=== PATIENT | female | born 1945 | race African-American/Black ===

== ENCOUNTER 2021-12-24 17:25 | Emergency (ER) | payer MEDICARE, SELFPAY ==
--- NOTE | ~2021-12-24 | XR_ITS ---
XR chest 2V DATE: 12/24/2021 18:04 INDICATION: Chest heaviness for a few weeks TECHNIQUE: PA and lateral views COMPARISON: None FINDINGS: There is mild cartilage. There is aortic arch calcification and thoracic aortic tortuosity. No hilar or mediastinal enlargement. No pulmonary infiltrate or consolidation, pleural effusion or pulmonary vascular congestion or pneumo thorax. Diffuse osteopenia. Degenerative spurring of the thoracic spine. IMPRESSION: No active cardiac pulmonary disease Aortic atherosclerosis Reviewed, dictated and finalized at location A.
[2021-12-24 17:27] VITALS: BP 160/105; PULSE 96; RESP 19; TEMP 36.1; O2SAT 99
--- NOTE | 2021-12-24 17:28 | ECG_ITS ---
Measurements Intervals [place] Rate: 96 P: DE: 0 QRS: -3 QRSD: 82 T: 9 QT: 350 QTc: 444 Interpretive Statements ATRIAL FIBRILLATION LOW QRS VOLTAGE IN PRECORDIAL LEADS [QRS DEFLECTION < 1.0 mV IN CHEST LEADS] POSSIBLE RIGHT VENTRICULAR CONDUCTION DELAY [RSR (QR) IN V1/V2] ANTERIOR MYOCARDIAL INFARCTION , OF INDETERMINATE AGE [40+ ms Q WAVE AND/OR ST/T ABNORMALITY IN V3/V4] ABNORMAL ECG NO PREVIOUS ECG AVAILABLE FOR COMPARISON Electronically Signed On 12-25-2021 9:22:23 CDT by Stefano Hernandez M.D.
[2021-12-24 17:46] LABS: Basophils Percent Auto 0.4 % (0.2-1.2); Eosinophils Absolute Auto 0.1 K/mm3 (0-0.3); Eosinophils Percent Auto 1.4 % (0-4.4); Hematocrit 33.8 % (37.0-47.0); Hemoglobin 10.6 g/dL (12.0-15.0); Immature Granulocyte Absolute 0.02 K/mm3 (0.00-0.031); Immature Granulocyte Percent A 0.3 % (0-0.5); Lymphocytes Absolute Auto 2.56 K/mm3 (0.9-3.2); Lymphocytes Percent Auto 33.5 % (18.3-44.2); Mean Corpuscular HGB Conc 31.4 g/dl (32-36); Mean Corpuscular Hemoglobin 30.4 pg (26-34); Mean Corpuscular Volume 96.8 fl (80-100); Monocytes Absolute Auto 0.4 K/mm3 (0.1-0.6); Monocytes Percent Auto 5.6 % (2.6-8.5); Neutrophils Absolute Auto 4.5 K/mm3 (1.3-6.7); Neutrophils Percent Auto 58.8 % (45.5-73.1); Platelet Count Result 231 k/mm3 (150-375); Red Blood Count 3.49 M/mm3 (4.2-5.4); Red Cell Distribution Width 13.2 % (11.5-14.5); White Blood Count 7.6 K/mm3 (4.5-10.0)
[2021-12-24 17:58] LABS: Alanine Aminotransferase 16 U/L (4-35); Alkaline Phosphatase 68 U/L (38-126); Anion Gap 5 mmol/L (8-16); Aspartate Amino Transferase 35 U/L (14-36); Bilirubin,Total 0.4 mg/dL (0.2-1.3); Blood Urea Nitrogen 16 mg/dL (7-17); Calcium 8.4 mg/dL (8.4-10.2); Carbon Dioxide 27 mmol/L (22-30); Chloride 108 mmol/L (98-107); Estimated CRCL calculation 56 ml/min; Estimated Glomerular Filt Rate > 60; Glucose 103 mg/dL (65-110); Lipase 45 U/L (23-300); Potassium 3.3 mmol/L (3.4-5.0); Sodium 140 mmol/L (137-145)
[2021-12-24 18:00] LABS: INR 2.5; Prothrombin Time 26.4 Seconds (11.1-14.7)
[2021-12-24 18:01] LABS: Partial Thromboplastin Time 37.7 SECONDS (22.3-36.8)
[2021-12-24 18:09] LABS: Troponin I < 0.012 ng/mL (0.000-0.034)
[2021-12-24] MEDS: ASPIRIN 81 MG CHEWABLE TABLET 324 MG PO (18:22)
--- NOTE | 2021-12-24 19:37 | ED.CHESTPAIN ---
HPI - Chest Pain General Chief Complaint: Chest Pain Stated Complaint: chest heaviness Time Seen by Provider: 12/24/21 18:49 Source: patient History of Present Illness HPI narrative: Patient presents with chest pressure. Reports she has had symptoms like this before in the past feels like she overworked herself has not been her symptoms improved after a few days. Today's episode did not improve so she came to the ER for evaluation. She does report she has been working harder than usual was trying to let her symptoms recover however today shortly after breakfast and doing dishes she described a chest tightness as well as left upper extremity pain it was not resolving so she came to the ER for further evaluation. She denies any shortness of breath nausea vomiting or diaphoresis. Related Data Home Medications Medication Instructions Recorded Confirmed lorazepam 1 mg PO BID PRN 12/24/21 warfarin 5 mg PO DAILY 12/24/21 Allergies Allergy/AdvReac Type Severity Reaction Status Date / Time No Known Allergies Allergy Unverified 12/24/21 18:27 Review of Systems Review of Systems: CONSTITUTIONAL: Denies fever, chills, or sweats. EYES: Denies visual changes, redness, or discharge. ENT: Denies rhinorrhea, congestion, sore throat, or otalgia. CARDIOVASCULAR: Denies palpitations, or edema. RESPIRATORY: Denies cough or dyspnea. GASTROINTESTINAL: Denies abdominal pain, nausea, vomiting, or diarrhea. GENITOURINARY: Denies dysuria or hematuria. SKIN: Denies rash or itching. MUSCULOSKELETAL: Denies back pain, joint pain, or myalgia. NEUROLOGIC: Denies headache, numbness, dizziness, or weakness. PSYCHIATRIC: Denies anxiety or depression. All systems reviewed & are unremarkable except as noted in HPI and below PMFSH Past Medical History Medical History (Updated 12/24/21 @ 19:45 by Silvano Ugalde MD) A-fib Social History Social History (Updated 12/24/21 @ 19:43 by Silvano Ugalde MD) Smoking status: Never smoker Alcohol intake: never Substance use: never Exam Narrative: GENERAL: Well-appearing, well-nourished, and in no acute distress. HEAD: Normocephalic, atraumatic. EYES: PERRLA and EOMI. ENT: Nares clear, no rhinorrhea or epistaxis. Mucous membranes moist. NECK: Supple. No masses. No JVD CHEST: Clear to auscultation. No respiratory distress. No wheezes rales or rhonchi HEART: Regular rate and rhythm. No murmur heard. Normal peripheral pulses. ABDOMEN: Soft, nontender, nondistended, normal active bowel sounds. EXTREMITIES: Normal range of motion. No edema. SKIN: Warm, dry, no rash. NEURO: No focal deficits. Alert and oriented x3. PSYCH: Normal mood and affect. Course Reevaluation(s) Reevaluation #1: Patient was comfortably results and plan reviewed with patient. Patient comfortable outpatient plan. Date: 12/24/21 Time: 19:43 Vital Signs Vital signs: Vital Signs Temperature 36.1 C L 12/24/21 17:27 Pulse Rate 96 12/24/21 17: Respiratory Rate 19 12/24/21 17:27 Blood Pressure 160/105 H 12/24/21 17:27 Pulse Oximetry 99 12/24/21 17:27 Temperature 36.1 C L 12/24/21 17:27 Pulse Rate 74 12/24/21 20:53 Respiratory Rate 17 12/24/21 20:53 Blood Pressure 151/98 H 12/24/21 20:53 Pulse Oximetry 100 12/24/21 20:53 MDM - Chest Pain MDM Narrative Medical decision making narrative: H&P as above, vss, pt looks clinically well, exam reassuring, labs reassuring, img reassuring, additional labs/img considered, symptomatic relief available as needed, on reevaluation pt continues to looks clinically well. Symptoms remain of unclear etiology low concern for ACS, PE, dissection, pneumothorax plan to tx/monitor as op w/ pcm f/u findings/plan discussed with pt, pt agree/comfortable with plan, return precautions given. Patient also has follow-up with her caster helper Monday of next week Lab Data Result diagrams: 12/24/21 17:39 12/24/21 17:39 Labs: Lab Res
[2021-12-24] MEDS: SODIUM CHLORIDE 0.9% IV 500 ML 999 ML IV CONT (20:21)
[2021-12-24 20:53] VITALS: BP 151/98; PULSE 74; RESP 17; O2SAT 100
== END 2021-12-24 21:15 | disposition home or self-care (01) ==
LOC: ANHED 20:07
PROVIDERS: Emergency Medicine; Emergency Provider Emergency Medicine; PCP Internal Medicine
DX: R07.89 Other chest pain (principal); I48.91 Unspecified atrial fibrillation; I70.0 Atherosclerosis of aorta; R94.31 Abnormal electrocardiogram [ECG] [EKG]; Z79.01 Long term (current) use of anticoagulants
CPT/HCPCS: 36415; 71046; 80053; 83690; 84484; 85025; 85610; 85730; 93005; 96360; 99284; A9270; J7040

== ENCOUNTER → 2022-02-02 12:33 | Outpatient (CLI) | payer MEDICARE, SELFPAY ==
--- NOTE | ~2022-02-02 | CT_ITS ---
EXAMINATION: CT abdomen pelvis wo con DATE: 02/02/2022 12:55 INDICATION: Diverticulitis, left lower quadrant pain TECHNIQUE: Computed tomography (CT) of the abdomen and pelvis was performed without intravenous contr ast. The dose-length product (DLP) was 593.48 mGy-cm. Automated exposure control and iterative recons truction technique were employed. COMPARISON: None FINDINGS: Minimal dependent atelectasis is present in the lung bases. The heart size is normal. Punct ate calcifications in otherwise normal appearing liver and spleen likely represent healed granulomato us disease. The pancreas, gallbladder, and adrenal glands are normal. No pathologically enlarged abdo karlie or pelvic lymph nodes are identified. There is no free intraperitoneal gas or evidence of bowel obstruction. Calcified uterine fibroids are noted. IMPRESSION: 1. No CT correlate for the patient's symptoms. Reviewed, dictated and finalized at location F.
== END ==
PROVIDERS: PCP Internal Medicine; Visit Provider Internal Medicine
DX: K57.92 Diverticulitis of intestine, part unspecified, without perforation or abscess without bleeding (principal)
CPT/HCPCS: 74176

== ENCOUNTER 2022-02-18 01:29 | Day surgery (SDC) | payer MEDICARE, SELFPAY ==
[2022-02-10 13:38] VITALS: BMI 33.5
[2022-02-18 11:56] VITALS: BP 144/101; PULSE 103; RESP 16; TEMP 36.3; O2SAT 100
[2022-02-18 11:57] VITALS: BMI 31.7
[2022-02-18] MEDS: LACTATED RINGERS 1,000 ML 150 ML IV CONT (12:11)
--- NOTE | 2022-02-18 12:12 | P.PNAN_ITS ---
Anes - Initial Pre Proc Eval Procedure: Operation Date: 02/18/22 13:15 Proposed Procedures p Colonoscopy - Giorgio Dyson MD Date/Time: 02/18/22 12:12 Surgeon: Giorgio Dyson MD Pre Op Diagnosis: ARIELLA Patient Data Age: 76 Gender: F Height: 1.52 m Weight: 73.8 kg Last Vital Signs Temp 36.3 C L 02/18/22 11:56 Pulse 103 H 02/18/22 11:56 Resp 16 02/18/22 11:56 BP 144/101 H 02/18/22 11:56 Pulse Ox 100 02/18/22 11:56 Allergies Allergy/AdvReac Type Severity Reaction Status Date / Time No Known Allergies Allergy Verified 02/18/22 11:45 Home Medications Medication Instructions Recorded Confirmed Type lorazepam 1 mg PO BID PRN 12/24/21 02/10/22 History warfarin 5 mg PO DAILY 12/24/21 02/10/22 History Ca carb-D3-mag [id number]-[id number]-Zn 1 tablet PO DAILY 02/10/22 02/10/22 History [Caltrate + D3 Plus Minerals] ferrous sulfate [FeroSul] 325 mg PO DAILY 02/10/22 02/10/22 History nitroglycerin 0.4 mg SUBLINGUAL DIRECTED PRN 02/10/22 02/10/22 History Patient hx anesthesia problems: none Family hx anesthesia problems: none Results Review: All pre-operative results and documents have been reviewed as pa rt of the pre-operative evaluation. PMFSH Past Medical History Medical History (Updated 02/18/22 @ 12:13 by Yoseph Roach MD) A-fib Obesity Surgical History Surgical History (Updated 02/18/22 @ 12:13 by Yoseph Roach MD) H/O colonoscopy Social History Social History Smoking status: Never smoker Alcohol intake: never Substance use: never Substance use type: does not use Living arrangements: with family Spiritual care concerns: No Anes - Eval Final PreProcedure Day of Procedure 02/18/22 12:12 Patient weight: obese Heart: regular rate and rhythm Lungs: clear to auscultation Airway: Mallampati scale class II Neurological: alert and oriented Last oral intake: >/= 8 hours ASA classification: III Emergent: no Anesthetic plan: proceed Anesthesia type and monitoring: general GIVS and standard monitoring Results Review: All pre-operative results and documents have been reviewed as part of the pre-operative evaluation. Informed Consent: The patient's anesthetic plan and its attendant risks and benefits were discussed with the patient/family/POA. Questions were solicited and answers provided to the satisfaction of the patient/family/POA.
[2022-02-18 12:25] LABS: INR 1.2; Prothrombin Time 14.2 Seconds (11.1-14.7)
--- NOTE | 2022-02-18 13:04 | WPDGICN ---
Assessment and Plan Assessment and plan (1) Iron deficiency anemia: Code(s): D50.9 - Iron deficiency anemia, unspecified Status: Acute Assessment and Plan: Colonoscopy with possible biopsy or polypectomy or cautery or injection of substances. GI Consult Note Consult date/time: 02/18/22 13:04 HPI: Lesia Aguilera is a 76 year old female Referred for investigation of iron deficiency anemia. She just recently began taking iron. She has not seen blood in her stools. There is a family history of colon cancer, her son had colon cancer. It has been quite a while since she had a colonoscopy. Review of Systems Review of Systems: All systems reviewed & are unremarkable except as noted in HPI and below PMFSH Past Medical History Medical History A-fib Obesity Surgical History Surgical History H/O colonoscopy Social History Social History Smoking status: Never smoker Alcohol intake: never Substance use: never Substance use type: does not use Living arrangements: with family Spiritual care concerns: No Meds Home Medications and Allergies Home Medications Medication Instructions Recorded Confirmed Type lorazepam 1 mg PO BID PRN 12/24/21 02/10/22 History warfarin 5 mg PO DAILY 12/24/21 02/10/22 History Ca carb-D3-mag so-[id number]-[id number]-Zn 1 tablet PO DAILY 02/10/22 02/10/22 History [Caltrate + D3 Plus Minerals] ferrous sulfate [FeroSul] 325 mg PO DAILY 02/10/22 02/10/22 History nitroglycerin 0.4 mg SUBLINGUAL DIRECTED PRN 02/10/22 02/10/22 History Allergies Allergy/AdvReac Type Severity Reaction Status Date / Time No Known Allergies Allergy Verified 02/18/22 11:45 Vital Signs Vital Signs - 24 hr 02/18/22 11:56 Temperature 36.3 C L Pulse Rate 103 H Respiratory Rate 16 Blood Pressure 144/101 H Pulse Oximetry 100 Exam Const: General: alert Orientation/consciousness: patient oriented x3 Resp: Auscultation: clear to auscultation bilaterally Cardio: Rhythm: regular rhythm GI: GI Palp: Yes Soft to palpation and No Tenderness to palpation present (GI) Neuro: General: patient oriented x3
[2022-02-18] MEDS: SIMETHICONE ORAL SUSPENSION 20 MG/0.3 ML 30 ML BOTTLE 0.6 ML IRRIGATION (13:23)
[2022-02-18 13:34] VITALS: BP 105/68; PULSE 97; RESP 18; O2SAT 98
[2022-02-18 13:44] VITALS: BP 104/68; PULSE 94; RESP 18; O2SAT 99
[2022-02-18 13:54] VITALS: BP 133/97; PULSE 86; RESP 16; O2SAT 99
== END 2022-02-18 14:08 | disposition home or self-care (01) ==
PROVIDERS: PCP Internal Medicine; Visit Provider Internal Medicine Gastroenterology
PROC: 0DJD8ZZ Inspection of Lower Intestinal Tract, Via Natural or Artificial Opening Endoscopic (ICD-10-PCS; CPT 45378; principal; 2022-02-18 13:15)
DX: Z12.11 Encounter for screening for malignant neoplasm of colon (principal); K64.8 Other hemorrhoids; K57.30 Diverticulosis of large intestine without perforation or abscess without bleeding; D50.9 Iron deficiency anemia, unspecified; E66.9 Obesity, unspecified; Z68.31 Body mass index [BMI] 31.0-31.9, adult
CPT/HCPCS: G0121; 36415; 85610; J2704; J7120

== ENCOUNTER 2022-07-08 15:46 | Observation (INO) | payer MEDICARE, SELFPAY ==
[2022-07-08] VITALS (36 sets, daily range): BP systolic 116–177; BP diastolic 75–109; PULSE 79–137; RESP 16–30; TEMP 36.4–37.8; O2SAT 98–100
--- NOTE | ~2022-07-08 | US_ITS ---
EXAMINATION: US abdomen limited DATE: 07/08/2022 18:30 INDICATION: Epigastric abdominal pain. Fever. Vomiting. TECHNIQUE: Multiple grayscale and Doppler ultrasound images of the abdomen were obtained. COMPARISON: CT abdomen and pelvis 07/08/2022 FINDINGS: The visualized portions of the head and body and tail of the pancreas are normal. The liver is normal without focal lesion. There is normal flow in main portal vein. The gallbladder is normal in size. No gallstones or gallbladder wall thickening. There was no sonographic Cornejo sign. The comm on duct is normal and measures 4 mm. IMPRESSION: 1. Normal right upper quadrant ultrasound. Reviewed, dictated and finalized at location A.
--- NOTE | ~2022-07-08 | CT_ITS ---
EXAMINATION: CT abdomen pelvis w con DATE: 07/08/2022 17:21 INDICATION: Epigastric abdominal pain. Vomiting. Fever. TECHNIQUE: Computed tomography (CT) of the abdomen and pelvis was performed with 100 mL Omnipaque 350 intravenous contrast. Automated exposure control and iterative reconstruction technique were employe d. The dose-length product was 387.28 mGy-cm. COMPARISON: CT abdomen and pelvis 02/02/2022 FINDINGS: The visualized portions of the lung bases demonstrate mild atelectasis. A calcified right l frannie nodule and calcified right hilar and mediastinal lymph nodes are consistent with old granulomatou s disease. No pleural effusion. Cardiomegaly is noted. There are coronary artery calcifications. No p ericardial effusion. Calcifications in the liver and spleen are consistent with old granulomatous dis ease. The gallbladder, pancreas, adrenal glands, and left kidney are normal. There is a 10 mm cyst in right kidney. There is a calcified fibroid in the uterus. There is diverticulosis of the colon witho ut evidence of diverticulitis. There are no dilated loops of bowel. The appendix is not visualized. T here are no pathologically enlarged lymph nodes. There is trace pelvic ascites. There is a right ingu inal hernia containing fat. There is mild thoracolumbar spondylosis. IMPRESSION: 1. Right inguinal hernia containing fat. Reviewed, dictated and finalized at location A.
--- NOTE | ~2022-07-08 | XR_ITS ---
EXAMINATION: XR chest 2V DATE: 07/08/2022 18:54 INDICATION: Fever. TECHNIQUE: Frontal and lateral views of the chest were obtained. COMPARISON: Chest 2 views 12/24/2021, CT abdomen and pelvis 07/08/2022 FINDINGS: There is mild atelectasis in the lower lung zones. No pleural effusion or pneumothorax. Car diomegaly is noted. IMPRESSION: 1. Mild atelectasis in the lower lung zones. 2. Cardiomegaly. Reviewed, dictated and finalized at location A.
[2022-07-08 16:47] LABS: Basophils Percent Auto 0.2 % (0.2-1.2); Eosinophils Percent Auto 0.1 % (0-4.4); Hematocrit 34.6 % (37.0-47.0); Hemoglobin 11.2 g/dL (12.0-15.0); Immature Granulocyte Absolute 0.06 K/mm3 (0.00-0.031); Immature Granulocyte Percent A 0.5 % (0-0.5); Lymphocytes Absolute Auto 0.76 K/mm3 (0.9-3.2); Lymphocytes Percent Auto 6.2 % (18.3-44.2); Mean Corpuscular HGB Conc 32.4 g/dl (32-36); Mean Corpuscular Hemoglobin 30.9 pg (26-34); Mean Corpuscular Volume 95.3 fl (80-100); Mean Platelet Volume 9.9 fl (7.4-10.4); Monocytes Absolute Auto 0.6 K/mm3 (0.1-0.6); Neutrophils Absolute Auto 10.9 K/mm3 (1.3-6.7); Platelet Count Result 222 k/mm3 (150-375); Red Blood Count 3.63 M/mm3 (4.2-5.4); White Blood Count 12.3 K/mm3 (4.5-10.0)
[2022-07-08] MEDS: SODIUM CHLORIDE 0.9% IV 500 ML 999 ML IV CONT ×2 (16:53→17:39)
--- NOTE | 2022-07-08 16:54 | ECG_ITS ---
Measurements Intervals [place] Rate: 125 P: [place]: 0 QRS: -17 QRSD: 77 T: -8 QT: 309 QTc: 447 Interpretive Statements ATRIAL FIBRILLATION WITH RAPID VENTRICULAR RESPONSE EARLY PRECORDIAL R/S TRANSITION INFERIOR INFARCT, AGE INDETERMINATE ABNORMAL ECG COMPARED TO ECG 12/24/2021 17:32:34 HEART RATE HAS INCREASED Electronically Signed On 07-08-2022 21:37:59 CDT by Jose Starkey D.O.
--- NOTE | 2022-07-08 16:57 | ED.GENADULT ---
HPI - General Adult General Chief complaint: Unspecified <DOROTEO Roman Last Filed: 07/08/22 18:49> Stated complaint: flu like symptoms <DOROTEO Roman Last Filed: 07/08/22 18:49> Time Seen by Provider: 07/08/22 16:26 <DOROTEO Roman Last Filed: 07/08/22 18:49> Source: patient <DOROTEO Roman Last Filed: 07/08/22 18:49> Mode of arrival: ambulatory <DOROTEO Roman Last Filed: 07/08/22 18:49> Limitations: no limitations <DOROTEO Roman Last Filed: 07/08/22 18:49> History of Present Illness HPI narrative: This is a 76-year-old female that presents to the emergency department for epigastric pain, nausea and vomiting. Ongoing since this morning. Associated with fever. Denies diarrhea or dysuria. <DOROTEO Roman Last Filed: 07/08/22 18:49> Related Data Home medications: Home Medications Medication Instructions Recorded Confirmed lorazepam 1 mg tablet 1 mg PO BID PRN Anxiety 12/24/21 02/10/22 warfarin 5 mg tablet 5 mg PO DAILY 12/24/21 02/10/22 calcium carb 300 mg-D3 800 1 tablet PO DAILY 02/10/22 02/10/22 unit-mag ox 25 mg-coping machine assembler 0.5 mg-katrin-Zn tablet (Caltrate + D3 Plus Minerals) ferrous sulfate 325 mg (65 mg 325 mg PO DAILY 02/10/22 02/10/22 iron) tablet (FeroSul) nitroglycerin 0.4 mg sublingual 0.4 mg sublingual DIRECTED PRN 02/10/22 02/10/22 tablet Chest Pain <DOROTEO Roman Last Filed: 07/08/22 18:49> Allergies/adverse reactions: Allergies Allergy/AdvReac Type Severity Reaction Status Date / Time No Known Allergies Allergy Verified 07/08/22 16:05 <DOROTEO Roman Last Filed: 07/08/22 18:49> Review of Systems Review of Systems: CONSTITUTIONAL: Denies fever CARDIOVASCULAR: Denies chest pain GASTROINTESTINAL: Reports abdominal pain, nausea, vomiting. Denies diarrhea. GENITOURINARY: Denies dysuria <Davina Ribeiro PA-C - Last Filed: 07/08/22 18:49> All systems reviewed & are unremarkable except as noted in HPI and below <Davina Ribeiro PA-C - Last Filed: 07/08/22 18:49> PMFSH Past Medical History Medical History: Medical History A-fib Obesity <Davina Ribeiro PA-C - Last Filed: 07/08/22 18:49> Surgical History Surgical History: Surgical History H/O colonoscopy <Davina Ribeiro PA-C - Last Filed: 07/08/22 18:49> Social History Social History: Social History Smoking status: Never smoker Alcohol intake: never Substance use: never Substance use type: does not use Spiritual care concerns: No <Davina Ribeiro PA-C - Last Filed: 07/08/22 18:49> Exam Narrative: GENERAL: Elderly, well-nourished, and in no acute distress. HEAD: Normocephalic, atraumatic. EYES: EOMI. CHEST: Clear to auscultation. No respiratory distress. No wheezes rales or rhonchi HEART: Regular rate and rhythm. No murmur heard. Normal peripheral pulses. ABDOMEN: Soft, nondistended, normal active bowel sounds. Tender to palpation of the epigastrium, without guarding EXTREMITIES: Normal range of motion. No edema. SKIN: Warm, dry, no rash. NEURO: No focal deficits. Alert and oriented x3. PSYCH: Normal mood and affect <Davina Ribeiro PA-C - Last Filed: 07/08/22 18:49> Course FURNACE LOADER/PA Physician Supervision For this patient encounter, I reviewed the FURNACE LOADER or PA documentation, treatment plan, and medical decision making; and I had [id number] time with this patient. <Leatha Brantley MD - Last Filed: 07/08/22 18:44> Consultations Consultation #1: Spoke with hospitalist about patient and work-up who accepts admission for further management of atrial fibrillation with RVR <Davina Ribeiro PA-C - Last Filed: 07/08/22 18:49> Date: 07/08/22 <Davina Ribeiro PA-C - Last Filed: 06/11
[2022-07-08 16:58] LABS: Appearance Urine Slightly Cloudy (Clear); Bilirubin Urine Negative (Negative); Blood Urine 1+ (Negative); Color Urine Yellow (Yellow); Glucose Urine UA Negative (Negative); Ketones Urine 2+ mg/dL (Negative); Leukocyte Esterase Ur 1+ LEU/UL (Negative); Nitrate Urine Negative (Negative); Protein Urine Negative (Negative); Urobilinogen Urine 0.2 mg/dL (<2.0)
[2022-07-08 17:03] LABS: Bacteria Urine Trace /hpf; Mucus Urine Rare /lpf; Squamous Epithelial Cell Urine Few /hpf (Few)
[2022-07-08 17:03] LABS: Alanine Aminotransferase 21 U/L (6-35); Albumin Level 4.4 g/dL (3.5-5.1); Alkaline Phosphatase 83 U/L (38-126); Anion Gap 11 mmol/L (8-16); Aspartate Amino Transferase 37 U/L (14-36); Bilirubin,Total 1.2 mg/dL (0.2-1.3); Blood Urea Nitrogen 15 mg/dL (7-17); Calcium 9.1 mg/dL (8.4-10.2); Carbon Dioxide 25 mmol/L (22-30); Chloride 100 mmol/L (98-107); Estimated Glomerular Filt Rate > 60; Glucose 119 mg/dL (65-110); Lipase 33 U/L (23-300); Potassium 3.3 mmol/L (3.4-5.0); Sodium 136 mmol/L (137-145)
[2022-07-08] MEDS: ONDANSETRON INJ 4 MG/2 ML VIAL IV PUSH ×2 (17:03→19:14)
[2022-07-08 17:04] LABS: Add Urine Microscopic? YES
[2022-07-08] MEDS: FAMOTIDINE 20 MG/2 ML VIAL IV PUSH (17:04)
[2022-07-08 17:20] LABS: Influenza A QL RT-PCR Negative (Negative); Influenza B QL RT-PCR Negative (Negative); SARS-CoV-2 RNA PCR Negative
[2022-07-08] MEDS: dilTIAZem HCl INJ 25 MG/5 ML VIAL 10 MG IV PUSH (18:22)
[2022-07-08] MEDS: dilTIAZem 100 MG/100 ML 100 MG/100 ML BAG IV CONT (18:57)
[2022-07-08] MEDS: POTASSIUM CHLORIDE 20 MEQ TABLET 40 MEQ PO (19:01)
--- NOTE | 2022-07-08 19:02 | ED.GENADULT ---
HPI - General Adult General Chief complaint: Unspecified Stated complaint: flu like symptoms Time Seen by Provider: 07/08/22 16:26 Source: patient Mode of arrival: ambulatory Limitations: no limitations Related Data Home Medications Medication Instructions Recorded Confirmed lorazepam 1 mg tablet 1 mg PO BID PRN Anxiety 12/24/21 02/10/22 warfarin 5 mg tablet 5 mg PO DAILY 12/24/21 02/10/22 calcium carb 300 mg-D3 800 1 tablet PO DAILY 02/10/22 02/10/22 unit-mag ox 25 mg-copy manager 0.5 mg-katrin-Zn tablet (Caltrate + D3 Plus Minerals) ferrous sulfate 325 mg (65 mg 325 mg PO DAILY 02/10/22 02/10/22 iron) tablet (FeroSul) nitroglycerin 0.4 mg sublingual 0.4 mg sublingual DIRECTED PRN 02/10/22 02/10/22 tablet Chest Pain Allergies Allergy/AdvReac Type Severity Reaction Status Date / Time No Known Allergies Allergy Verified 07/08/22 16:05 [facility] Past Medical History Medical History A-fib Obesity Surgical History Surgical History H/O colonoscopy Social History Social History Smoking status: Never smoker Alcohol intake: never Substance use: never Substance use type: does not use Spiritual care concerns: No Course Vital Signs Vital signs: Vital Signs Temperature 98.6 F 07/08/22 15:50 Pulse Rate 124 H 07/08/22 15:50 Respiratory Rate 20 07/08/22 15:50 Blood Pressure 153/95 H 07/08/22 15:50 Pulse Oximetry 100 07/08/22 15:50 Temperature 100.0 F H 07/08/22 16:46 Pulse Rate 109 H 07/08/22 18:57 Respiratory Rate 27 H 07/08/22 18:22 Blood Pressure 126/80 07/08/22 18:57 Pulse Oximetry 100 07/08/22 15:50 Medical Decision Making Vital Signs Vital Signs: Vital Signs Temperature 98.6 F 07/08/22 15:50 Pulse Rate 124 H 07/08/22 15:50 Respiratory Rate 20 07/08/22 15:50 Blood Pressure 153/95 H 07/08/22 15:50 Pulse Oximetry 100 07/08/22 15:50 Temperature 100.0 F H 07/08/22 16:46 Pulse Rate 109 H 07/08/22 18:57 Respiratory Rate 27 H 07/08/22 18:22 Blood Pressure 126/80 07/08/22 18:57 Pulse Oximetry 100 07/08/22 15:50 Lab Data Result diagrams: 07/08/22 16:43 07/08/22 16:43 Labs: Lab Results 07/08/22 07/08/22 07/08/22 Range/Units 16:39 16:43 16:43 WBC 12.3 H (4.5-10.0) K/mm3 RBC 3.63 L (4.2-5.4) M/mm3 Hgb 11.2 L (12.0-15.0) g/dL Hct 34.6 L (37.0-47.0) % MCV 95.3 (80-100) fl MCH 30.9 (26-34) pg MCHC 32.4 (32-36) g/dl RDW 13.0 (11.5-14.5) % Plt Count 222 (150-375) k/mm3 MPV 9.9 (7.4-10.4) fl Immature Gran % (Auto) 0.5 (0-0.5) % Neut % (Auto) 88.0 H (45.5-73.1) % Lymph % (Auto) 6.2 L (18.3-44.2) % [place] % (Auto) 5.0 (2.6-8.5) % Eos % (Auto) 0.1 (0-4.4) % Baso % (Auto) 0.2 (0.2-1.2) % Lymph # (Auto) 0.76 L (0.9-3.2) K/mm3 [place] # (Auto) 0.6 (0.1-0.6) K/mm3 Eos # (Auto) 0.0 (0-0.3) K/mm3 Baso # (Auto) 0.0 (0.0-0.1) K/mm3 Abs Immat Gran (auto) 0.06 H (0.00-0.031) K/mm3 Absolute Neuts (auto) 10.9 H (1.3-6.7) K/mm3 Absolute Nucleated RBC 0.0 (0.0-0.012) K/mm3 Nucleated RBC % 0.0 (0.0-0.2) % Sodium 136 L (137-145) mmol/L Potassium 3.3 L (3.4-5.0) mmol/L Chloride 100 (98-107) mmol/L Carbon Dioxide 25 (22-30) mmol/L Anion Gap 11 (8-16) mmol/L BUN 15 (7-17) mg/dL Creatinine 0.90 (0.7-1.0) mg/dL Estim Creat Clear Calc Not Reportable Estimated GFR > 60 (59 - ) Glucose 119 H (65-110) mg/dL Lactic Acid Calcium 9.1 (8.4-10.2) mg/dL Total Bilirubin 1.2 (0.2-1.3) mg/dL AST 37 H (14-36) U/L ALT 21 (6-35) U/L Alkaline Phosphatase 83 (38-126) U/L Total Protein 8.0 (6.3-8.2) g/dL Albumin 4.4 (3.5-5.1) g/dL Lipase 33 (23-300) U/L Urine C
[2022-07-08 19:14] LABS: Magnesium 1.6 mg/dL (1.6-2.3)
--- NOTE | 2022-07-08 19:26 | ED.GENADULT ---
HPI - General Adult General Chief complaint: Unspecified Stated complaint: flu like symptoms Time Seen by Provider: 07/08/22 16:26 Source: patient Mode of arrival: ambulatory Limitations: no limitations Related Data Home Medications Medication Instructions Recorded Confirmed lorazepam 1 mg tablet 1 mg PO BID PRN Anxiety 12/24/21 02/10/22 warfarin 5 mg tablet 5 mg PO DAILY 12/24/21 02/10/22 calcium carb 300 mg-D3 800 1 tablet PO DAILY 02/10/22 02/10/22 unit-mag ox 25 mg-copper flotation operator 0.5 mg-katrin-Zn tablet (Caltrate + D3 Plus Minerals) ferrous sulfate 325 mg (65 mg 325 mg PO DAILY 02/10/22 02/10/22 iron) tablet (FeroSul) nitroglycerin 0.4 mg sublingual 0.4 mg sublingual DIRECTED PRN 02/10/22 02/10/22 tablet Chest Pain Allergies Allergy/AdvReac Type Severity Reaction Status Date / Time No Known Allergies Allergy Verified 07/08/22 16:05 PENDING SALE TO [facility] Past Medical History Medical History (Updated 07/08/22 @ 19:31 by Roseanne Jain NP) A-fib Anxiety Obesity Surgical History Surgical History (Updated 07/08/22 @ 19:31 by Roseanne Jain NP) H/O colonoscopy H/O tubal ligation Family History Family History (Updated 07/08/22 @ 19:38 by Roseanne Jain NP) Mother Diabetes mellitus Father Heart disease Social History Social History (Updated 07/08/22 @ 19:33 by Roseanne Jain NP) Social History: poa nne 6 c retired [employer] [facility] [place] Smoking status: Never smoker Alcohol intake: never Substance use: never Substance use type: does not use Spiritual care concerns: No Course Vital Signs Vital signs: Vital Signs Temperature 37.0 C 07/08/22 15:50 Pulse Rate 124 H 07/08/22 15:50 Respiratory Rate 20 07/08/22 15:50 Blood Pressure 153/95 H 07/08/22 15:50 Pulse Oximetry 100 07/08/22 15:50 Temperature 37.8 C H 07/08/22 16:46 Pulse Rate 109 H 07/08/22 18:57 Respiratory Rate 27 H 09/30/22 18:22 Blood Pressure 126/80 09/30/22 18:57 Pulse Oximetry 100 07/08/22 15:50 Medical Decision Making Vital Signs Vital Signs: Vital Signs Temperature 37.0 C 07/08/22 15:50 Pulse Rate 124 H 07/08/22 15:50 Respiratory Rate 20 07/08/22 15:50 Blood Pressure 153/95 H 07/08/22 15:50 Pulse Oximetry 100 07/08/22 15:50 Temperature 37.8 C H 07/08/22 16:46 Pulse Rate 109 H 07/08/22 18:57 Respiratory Rate 27 H 07/08/22 18:22 Blood Pressure 126/80 07/08/22 18:57 Pulse Oximetry 100 07/08/22 15:50 Lab Data Result diagrams: 07/08/22 16:43 07/08/22 16:43 Labs: Lab Results 07/08/22 07/08/22 07/08/22 Range/Units 16:39 16:43 16:43 WBC 12.3 H (4.5-10.0) K/mm3 RBC 3.63 L (4.2-5.4) M/mm3 Hgb 11.2 L (12.0-15.0) g/dL Hct 34.6 L (37.0-47.0) % MCV 95.3 (80-100) fl MCH 30.9 (26-34) pg MCHC 32.4 (32-36) g/dl RDW 13.0 (11.5-14.5) % Plt Count 222 (150-375) k/mm3 MPV 9.9 (7.4-10.4) fl Immature Gran % (Auto) 0.5 (0-0.5) % Neut % (Auto) 88.0 H (45.5-73.1) % Lymph % (Auto) 6.2 L (18.3-44.2) % [place] % (Auto) 5.0 (2.6-8.5) % Eos % (Auto) 0.1 (0-4.4) % Baso % (Auto) 0.2 (0.2-1.2) % Lymph # (Auto) 0.76 L (0.9-3.2) K/mm3 [place] # (Auto) 0.6 (0.1-0.6) K/mm3 Eos # (Auto) 0.0 (0-0.3) K/mm3 Baso # (Auto) 0.0 (0.0-0.1) K/mm3 Abs Immat Gran (auto) 0.06 H (0.00-0.031) K/mm3 Absolute Neuts (auto) 10.9 H (1.3-6.7) K/mm3 Absolute Nucleated RBC 0.0 (0.0-0.012) K/mm3 Nucleated RBC % 0.0 (0.0-0.2) % Sodium 136 L (137-145) mmol/L Potassium 3.3 L (3.4-5.0) mmol/L Chloride 100 (98-107) mmol/L Carbon Dioxide 25 (22-30) mmol/L Anion Gap 11 (8-16) mmol/L BUN 15 (7-17) mg/dL Creatinine 0.90 (0.7-1.0) mg/dL Estim Creat Clear Calc Not Reportable Estimated GFR > 60 (59 - ) Glucose 119 H (65-110) mg/dL Lactic Acid (0.7-2.0) mmol/L Calcium 9.1 (8.4-10.2)
--- NOTE | 2022-07-08 20:57 | PC.NURSE ---
patient being transferred to IMU with misti quintana
[2022-07-08 21:46] LABS: Prothrombin Time 22.2 Seconds (11.1-14.7)
[2022-07-08 21:47] LABS: Partial Thromboplastin Time 37.5 SECONDS (22.3-36.8)
--- NOTE | 2022-07-08 21:58 | PM.IMHP ---
H&P: HPI History of Present Illness Date/Time: 07/08/22 21:58 Chief Complaint: Flu-like symptoms Narrative: This is a 76-year-old female patient who has a history of atrial fibrillation and is on Coumadin. The patient does not take any rate controlling medication. The patient stated that she does take her warfarin but is not compliant with other medications. The patient also stated that she has some anxiety. Today she came to the emergency room with epigastric pain nausea vomiting. This started this morning. She it is associated with fever. She denies any diarrhea or dysuria. Her white count is up to 12.3. H&H is 11.2 and 34.6. Her sodium was slightly low at 136. Potassium was 3.3. The patient has 1+ leukocyte esterase. RBCs 6-7. WBCs 4-6. Influenza a and B and COVID were negative. I empirically started the patient on Rocephin since she has an elevated white count and some leukocyte esterase in her urine. She also had a fever. The patient was found to be in AFib with RVR and she was started on a Cardizem drip. She also was given IV fluids and Tylenol. She was given Pepcid IV. She was supplemented with p.o. potassium. The patient is being admitted to observation on the date of service of 07/08/2022. Review of Systems Review of Systems: See HPI see HPI All systems reviewed & are unremarkable except as noted in HPI and below Constitutional: Constitutional: Reports as per HPI and Reports no additional constitutional complaints Eyes: Eyes: Reports as per HPI and Reports no additional eye complaints ENT: Reports system reviewed and no additional complaints, except as documented and Reports Normal hearing present Cardiovascular: Cardiovascular: Reports no additional cardiovascular complaints Respiratory: Respiratory: Reports no additional respiratory complaints and Reports no additional respiratory complaints Gastrointestinal: Gastrointestinal: Reports as per HPI and Reports no additional gastrointestinal complaints Musculoskeletal: Musculoskeletal: Reports no additional musculoskeletal complaints Integumentary/Breasts: Skin/Breast: Reports system reviewed and no additional complaints, except as docu and Reports as per HPI Neurologic: Reports system reviewed and no additional complaints, except as documented, Reports as per HPI and Reports Normal hearing present Psychiatric: Psychiatric: Reports no additional psychiatric complaints and Reports as per HPI Endocrine: Endocrine: Reports no additional endocrine complaints Hematologic/Lymphatic: Hematologic/Lymphatic: Reports no additional hematologic/lymphatic complaints Allergic/Immunologic: Allergic/Immunologic: Reports no additional allergic/immunologic complaints [facility] Past Medical History Medical History A-fib Anxiety Obesity Surgical History Surgical History H/O colonoscopy H/O tubal ligation Family History Family History Mother Diabetes mellitus Father Heart disease Sibling Cerebrovascular accident Chronic obstructive pulmonary disease Asthma Prostate carcinoma Son Colon cancer Daughter Allergies Social History Social History (Updated 07/08/22 @ 23:11 by Roseanne Jain NP) Social History: the patient has known durable power senior trial attorney for healthcare. She is . She had 6 children. 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 She is a former smoker. She Does not drink alcohol, smoke marijuana or use illicit drugs. code status full code Smoking packs per day: 0.2 Smoking cigarettes per day: 4.0 Years smoked: 2 Smoking pack-years: 0.40 Smoking status: Former smoker Tobacco type: cigarettes Second hand tobacco smoke exposure: Yes Alcohol intake: former Substance use: never Subs
--- NOTE | 2022-07-08 22:15 | PC.NURSE ---
This patient, Lesia Aguilera, was admitted to IMU Room 201-01 at 2103. Patient/family oriented to hospital policies and general routines including ID bracelet, bed and alarms, visiting hours, pain management, procedures, bathroom and other care routines, personal items, smoking policy, room service/diet, and visiting hours. Information on how to activate the Rapid Response Team has been discussed. Patient/Family are encouraged to report perceived risks to care and to ask questions if they do not understand what they are told or what they should do.
[2022-07-08] MEDS: WARFARIN (*PBKC) 2 MG TABLET PO (22:42)
[2022-07-08] MEDS: WARFARIN (*PBKC) 5 MG TABLET PO (22:42)
[2022-07-08] MEDS: dilTIAZem 100 MG/100 ML 100 MG/100 ML BAG 7.5 MG IV CONT (22:43)
[2022-07-08] MEDS: MAGNESIUM SULF 2 GM/WATER 50ML 2 GM/50 ML BAG IVPB (23:40)
[2022-07-09] VITALS (16 sets, daily range): BP systolic 103–134; BP diastolic 58–80; PULSE 68–106; RESP 16–24; TEMP 36.2–36.9; O2SAT 97–100
[2022-07-09] MEDS: ACETAMINOPHEN 325 MG TABLET 650 MG PO ×2 (04:28→20:48)
[2022-07-09 04:47] LABS: Hematocrit 34.3 % (37.0-47.0); Hemoglobin 10.7 g/dL (12.0-15.0); Mean Corpuscular HGB Conc 31.2 g/dl (32-36); Mean Corpuscular Hemoglobin 30.7 pg (26-34); Mean Corpuscular Volume 98.3 fl (80-100); Mean Platelet Volume 10.2 fl (7.4-10.4); Platelet Count Result 216 k/mm3 (150-375); Red Blood Count 3.49 M/mm3 (4.2-5.4); Red Cell Distribution Width 13.4 % (11.5-14.5); White Blood Count 11.9 K/mm3 (4.5-10.0)
[2022-07-09 04:58] LABS: Alanine Aminotransferase 23 U/L (6-35); Alkaline Phosphatase 71 U/L (38-126); Anion Gap 10 mmol/L (8-16); Aspartate Amino Transferase 34 U/L (14-36); Blood Urea Nitrogen 12 mg/dL (7-17); Calcium 8.5 mg/dL (8.4-10.2); Carbon Dioxide 27 mmol/L (22-30); Chloride 101 mmol/L (98-107); Estimated Glomerular Filt Rate > 60; Glucose 118 mg/dL (65-110); Lactate Dehydrogenase 200 U/L (120-246); Lipase 26 U/L (23-300); Magnesium 2.5 mg/dL (1.6-2.3); Potassium 3.6 mmol/L (3.4-5.0); Sodium 138 mmol/L (137-145)
[2022-07-09 05:03] LABS: Lactic Acid Reflex 1.5 mmol/L (0.7-2.0)
[2022-07-09 05:09] LABS: INR 2.1; Prothrombin Time 22.6 Seconds (11.1-14.7)
[2022-07-09] MEDS: FAMOTIDINE 20 MG/2 ML VIAL IV PUSH ×2 (08:57→20:32)
[2022-07-09] MEDS: POTASSIUM CHLORIDE 20 MEQ TABLET 40 MEQ PO (10:56)
[2022-07-09] MEDS: dilTIAZem 100 MG/100 ML 100 MG/100 ML BAG 7.5 MG IV CONT ×2 (10:59→23:24)
--- NOTE | 2022-07-09 16:18 | PM.IMPN ---
Progress Note: A&P Assessment and Plan (1) Atrial fibrillation with rapid ventricular response: Code(s): I48.91 - Unspecified atrial fibrillation Status: Acute Assessment and Plan: - patient is on a Cardizem drip. - cardiology has been consulted. - check daily PT INR. - INR is 2.0 - patient is not on any rate-controlling medication. 07/09/2022 interval history: patient with history of A. Fib rate is controlled without any meds and anticoagulated with warfarin INR is 2.1, patient presented to ER with Flu-like symptoms, and in A. Fib with RVR, was placed on diltiazem drip, and rate is now controlled and patient is off the drip, patient has no complaints of CP, SOB or palpitation, patient urine is suspicious for UTI being treated with ceftriaxone, will monitor patient plan. (2) Iron deficiency anemia: Code(s): D50.9 - Iron deficiency anemia, unspecified Status: Acute Assessment and Plan: - her H&H is 11.2 and 34.6. - which is improved from her last H&H. -No active bleeding is noted. - patient is on warfarin so monitor for any bleeding. (3) Anxiety: Code(s): F41.9 - Anxiety disorder, unspecified Status: Acute Assessment and Plan: -Continue with her home medications. continue with buspirone. (4) UTI (urinary tract infection): Code(s): N39.0 - Urinary tract infection, site not specified Status: Acute Assessment and Plan: -the patient was started on Rocephin. -Urine and blood cultures are pending. (5) Hypokalemia: Code(s): E87.6 - Hypokalemia Status: Acute Assessment and Plan: - potassium was replaced in the emergency room. - please monitor daily. - check magnesium -patient's magnesium was on the borderline tonight so I will replace it. Subjective Date/time seen: 07/09/22 16:18 Narrative: This is a 76-year-old female patient who has a history of atrial fibrillation and is on Coumadin.? The patient does not take any rate controlling medication.? The patient stated that she does take her warfarin but is not compliant with other medications.? The patient also stated that she has some anxiety.? Today she came to the emergency room with epigastric pain nausea vomiting.? This started this morning.? She it is associated with fever.? She denies any diarrhea or dysuria.? Her white count is up to 12.3.? H&H is 11.2 and 34.6.? Her sodium was slightly low at 136.? Potassium was 3.3.? The patient has 1+ leukocyte esterase.? RBCs 6-7.? WBCs 4-6.? Influenza a and B and COVID were negative.? I empirically started the patient on Rocephin since she has an elevated white count and some leukocyte esterase in her urine.? She also had a fever.? The patient was found to be in AFib with RVR and she was started on a Cardizem drip.? She also was given IV fluids and Tylenol.? She was given Pepcid IV.? She was supplemented with p.o. potassium.? The patient is being admitted to observation on the date of service of 07/08/2022. 07/09/2022 interval history: patient with history of A. Fib rate is controlled without any meds and anticoagulated with warfarin INR is 2.1, patient presented to ER with Flu-like symptoms, and in A. Fib with RVR, was placed on diltiazem drip, and rate is now controlled and patient is off the drip, patient has no complaints of CP, SOB or palpitation, patient urine is suspicious for UTI being treated with ceftriaxone, will monitor patient plan. Review of Systems Review of Systems: All systems reviewed & are unremarkable except as noted in HPI and below Exam Narrative: Patient is comfortable, NAD HEENT: eyes are clear and none icteric LUNGS:CTA HEART: RR S1S2 ABD: BS+, Soft and nontender Lower extremities: no edema SKIN: nonjaundiced Neuro: grossly intact. Objective Data Vital Signs Vital Signs: Vital Signs - 24 hr 07/08/22 16:46 07/08/22 16:41 07/08/22 16:42 Temperature 100.0 F H Pulse Rate 121 H 119 H Respiratory Ra
--- NOTE | 2022-07-09 17:09 | PM.CNCAR ---
Assessment and Plan Assessment and plan (1) Atrial fibrillation with rapid ventricular response: Code(s): I48.91 - Unspecified atrial fibrillation Status: Acute Plan Would discontinue Diltiazem drip. Start oral Metoprolol for rate control, and can increase as tolerated. On Warfarin for anticoagulation. Goal INR is 2-3. History of Present Illness History of Present Illness Consult date/time: 07/09/22 17:09 Requesting physician: Roseanne Jain NP Consult reason: atrial fibrillation Reason For Visit: AFIB w/RVR Narrative: Patient is a 76-year-old female with a history of atrial fibrillation on Coumadin who presented with abdominal pain, nausea and vomiting. Patient found to be in AFIB with RVR, and was started on Cardizem drip with improvement in rate control. Patient reports she was diagnosed with atrial fibrillation long ago. Does not have a Auto Research Engineer, but her AFIB is managed by her PCP. She states that overall her AFIB has been well controlled otherwise. Patient denies any symptoms this morning and states she is feeling great. Review of Systems Review of Systems: All systems reviewed & are unremarkable except as noted in HPI and below (HPI) PMFSH Past Medical History Medical History A-fib Anxiety Obesity Surgical History Surgical History H/O colonoscopy H/O tubal ligation Family History Family History Mother Diabetes mellitus Father Heart disease Sibling Cerebrovascular accident Chronic obstructive pulmonary disease Asthma Prostate carcinoma Son Colon cancer Daughter Allergies Social History Social History Social History: the patient has known durable power tax attorney for healthcare. She is . She had 6 children. 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 She is a former smoker. She Does not drink alcohol, smoke marijuana or use illicit drugs. code status full code Smoking packs per day: 0.2 Smoking cigarettes per day: 4.0 Years smoked: 2 Smoking pack-years: 0.40 Smoking status: Former smoker Tobacco type: cigarettes Second hand tobacco smoke exposure: Yes Alcohol intake: former Substance use: never Substance use type: does not use Spiritual care concerns: No Meds Home Medications and Allergies Home Medications Medication Instructions Recorded Confirmed Type warfarin 5 mg tablet 7 mg PO DAILY 12/24/21 07/08/22 History calcium carb 300 mg-D3 800 1 tablet PO DAILY 02/10/22 07/08/22 History unit-mag ox 25 mg-photocopying equipment repairer 0.5 mg-katrin-Zn tablet (Caltrate + D3 Plus Minerals) nitroglycerin 0.4 mg sublingual 0.4 mg sublingual DIRECTED PRN 02/10/22 07/08/22 History tablet Chest Pain buspirone 10 mg tablet 10 mg PO BID PRN Anxiety 07/08/22 07/08/22 History Allergies Allergy/AdvReac Type Severity Reaction Status Date / Time No Known Allergies Allergy Verified 07/08/22 16:05 Vital Signs Vital Signs - 24 hr 07/08/22 17:23 07/08/22 17:30 07/08/22 17:40 Temperature Pulse Rate 122 H 105 H 111 H Respiratory Rate 21 H 26 H 26 H Blood Pressure 148/90 H Pulse Oximetry Oxygen Delivery 07/08/22 18:06 07/08/22 18:20 07/08/22 18:22 Temperature Pulse Rate 119 H 124 H Respiratory Rate 30 H 22 H 27 H Blood Pressure 152/89 H Pulse Oximetry Oxygen Delivery 07/08/22 18:57 07/08/22 18:23 07/08/22 18:30 Temperature Pulse Rate 109 H 137 H 103 H Respiratory Rate 21 H 24 H Blood Pressure 126/80 Pulse Oximetry Oxygen Delivery 07/08/22 18:31 07/08/22 18:46 07/08/22 18:58 Temperature Pulse Rate 109 H 109 H Respiratory Rate 23 H 25 H 22 H Blood Pressure 142/93 H 126/80 Pulse Oximetry Oxygen Delivery
[2022-07-09] MEDS: WARFARIN (*PBKC) 2 MG TABLET PO (20:32)
[2022-07-09] MEDS: WARFARIN (*PBKC) 5 MG TABLET PO (20:32)
[2022-07-10] VITALS (12 sets, daily range): BP systolic 103–114; BP diastolic 57–92; PULSE 67–99; RESP 14–18; TEMP 36.2–36.4; O2SAT 96–100
[2022-07-10] MEDS: ACETAMINOPHEN 325 MG TABLET 650 MG PO (03:43)
[2022-07-10 05:10] LABS: Hematocrit 31.8 % (37.0-47.0); Hemoglobin 9.8 g/dL (12.0-15.0); Mean Corpuscular HGB Conc 30.8 g/dl (32-36); Mean Corpuscular Volume 97.2 fl (80-100); Mean Platelet Volume 10.3 fl (7.4-10.4); Platelet Count Result 205 k/mm3 (150-375); Red Blood Count 3.27 M/mm3 (4.2-5.4); Red Cell Distribution Width 13.3 % (11.5-14.5); White Blood Count 10.2 K/mm3 (4.5-10.0)
[2022-07-10 05:24] LABS: Anion Gap 9 mmol/L (8-16); Blood Urea Nitrogen 18 mg/dL (7-17); Calcium 8.3 mg/dL (8.4-10.2); Carbon Dioxide 23 mmol/L (22-30); Chloride 107 mmol/L (98-107); Estimated Glomerular Filt Rate > 60; Glucose 104 mg/dL (65-110); Magnesium 2.2 mg/dL (1.6-2.3); Sodium 139 mmol/L (137-145)
[2022-07-10 05:37] LABS: Transferrin 172 mg/dL (206-381)
[2022-07-10 06:02] LABS: Iron 28 ug/dL (37-170)
[2022-07-10 06:11] LABS: Percent Iron Saturation 10 % (20-50)
[2022-07-10 06:28] LABS: Folic Acid 11.4 ng/mL (2.76->20)
[2022-07-10] MEDS: FAMOTIDINE 20 MG/2 ML VIAL IV PUSH (09:23)
[2022-07-10 09:54] LABS: INR 2.2; Prothrombin Time 23.9 Seconds (11.1-14.7)
[2022-07-10] MEDS: METOPROLOL TARTRATE 50 MG TAB PO (11:24)
--- NOTE | 2022-07-10 13:32 | PM.PNCARD ---
Progress Note: A&P Assessment and Plan (1) Atrial fibrillation with rapid ventricular response: Code(s): I48.91 - Unspecified atrial fibrillation Status: Acute Plan Rate controlled now. Given oral Metoprolol this AM. If heart rate remains well controlled during the day, then okay to discharge later this afternoon with outpatient Cardiology Clinic follow-up. On Warfarin for anticoagulation. Goal INR is 2-3. Subjective Date/time seen: 07/10/22 13:32 Interval history: Patient doing well. States she feels great. Wants to go home. Review of Systems Review of Systems: All systems reviewed & are unremarkable except as noted in HPI and below (subjective) Exam Const: General: comfortable and no acute distress Neck: Neck: no JVD Resp: Effort & Inspection: normal respiratory effort Auscultation: clear to auscultation bilaterally Cardio: Rhythm: abnormal rhythm irregularly irregular Heart sounds: no murmurs Skin: General skin exam: normal color Neuro: Speech: normal speech Extrem: General: no edema Psych: Mental Status: mental status grossly normal Objective Data Vital Signs Vital Signs: Vital Signs - 24 hr 07/09/22 14:00 07/09/22 16:00 07/09/22 16:00 Temperature 36.6 C Pulse Rate 79 83 Respiratory Rate 18 Blood Pressure 129/80 Pulse Oximetry 99 Oxygen Delivery Room Air 07/09/22 16:00 07/09/22 18:00 07/09/22 20:00 Temperature 36.9 C Pulse Rate 80 92 94 Respiratory Rate 16 Blood Pressure 134/80 Pulse Oximetry 97 Oxygen Delivery 07/09/22 20:00 07/09/22 23:24 07/10/22 00:00 Temperature 36.4 C Pulse Rate 71 89 Respiratory Rate 16 Blood Pressure 109/57 L Pulse Oximetry 96 Oxygen Delivery Room Air 07/10/22 00:00 07/10/22 03:39 07/10/22 03:53 Temperature Pulse Rate 91 Respiratory Rate Blood Pressure Pulse Oximetry Oxygen Delivery Room Air Room Air 07/09/22 20:00 07/09/22 22:00 07/10/22 00:00 Temperature Pulse Rate 88 89 80 Respiratory Rate Blood Pressure Pulse Oximetry Oxygen Delivery 07/10/22 02:00 07/10/22 05:21 07/10/22 04:00 Temperature Pulse Rate 80 78 67 Respiratory Rate Blood Pressure Pulse Oximetry Oxygen Delivery 07/10/22 04:00 07/10/22 06:00 07/10/22 08:00 Temperature 36.4 C 36.2 C L Pulse Rate 70 71 85 Respiratory Rate 14 18 Blood Pressure 103/60 114/69 Pulse Oximetry 100 100 Oxygen Delivery 07/10/22 08:00 07/10/22 08:00 07/10/22 10:00 Temperature Pulse Rate 94 99 Respiratory Rate Blood Pressure Pulse Oximetry Oxygen Delivery Room Air 07/10/22 11:24 07/10/22 12:00 07/10/22 12:00 Temperature Pulse Rate 90 69 Respiratory Rate Blood Pressure Pulse Oximetry Oxygen Delivery Room Air Intake/Output Intake/Output: Intake & Output 07/07/22 07/08/22 07/09/22 07/10/22 23:59 23:59 23:59 23:59 Intake Total 1175 1620 268 Output Total 1500 550 Balance 1175 120 -282 Meds/Results Medications: Active Medications Generic Name Dose Route Start Last Admin Trade Name Freq PRN Reason Stop Dose Admin Acetaminophen 650 mg 07/09/22 04:20 07/10/22 03:43 Acetaminophen 325 Mg Tablet PO 650 mg Q6H PRN Administration Mild Pain (1-3) or Fever Buspirone HCl 10 mg 07/08/22 23:19 Buspirone Hcl 10 Mg Tablet PO BID PRN Anxiety Famotidine 20 mg 07/09/22 09:00 07/10/22 09:23 Famotidine 20 Mg/2 Ml Vial IV PUSH 20 mg Q12HR SIMONE Administration Ceftriaxone Sodium/Dextrose 1 gm in 50 mls @ 100 mls/hr 07/08/22 22:05 07/09/22 21:02 Rocephin 1 Gm/D5w 50 Ml IVPB Infused DAILY@2100 SIMONE Infusion Metoprolol Tartrate 50 mg 07/10/22 10:45 07/10/22 11:24 Metoprolol Tartrate 50 Mg Tab PO 50 mg Q12HR SIMONE Administration Nitroglycerin 0.4 mg 07/08/22 22:07 Nitroglycerin Sl 0.4 Mg Tablet SUBLINGUAL Q5MIN PRN Chest Pain Ondansetron HCl 4 mg
--- NOTE | 2022-07-10 15:51 | PM.DS ---
DS: Admitting Diagnosis Discharge Date 07/10/2022 Admitting Diagnosis flu-like symptoms DS: Discharge Diagnosis Discharge Diagnosis (1) Atrial fibrillation with rapid ventricular response: Code(s): I48.91 - Unspecified atrial fibrillation Status: Acute Assessment and Plan: - patient is on a Cardizem drip. - cardiology has been consulted. - check daily PT INR. - INR is 2.0 - patient is not on any rate-controlling medication. 07/09/2022 interval history: patient with history of A. Fib rate is controlled without any meds and anticoagulated with warfarin INR is 2.1, patient presented to ER with Flu-like symptoms, and in A. Fib with RVR, was placed on diltiazem drip, and rate is now controlled and patient is off the drip, patient has no complaints of CP, SOB or palpitation, patient urine is suspicious for UTI being treated with ceftriaxone, will monitor patient plan. (2) Iron deficiency anemia: Code(s): D50.9 - Iron deficiency anemia, unspecified Status: Acute Assessment and Plan: - her H&H is 11.2 and 34.6. - which is improved from her last H&H. -No active bleeding is noted. - patient is on warfarin so monitor for any bleeding. (3) Anxiety: Code(s): F41.9 - Anxiety disorder, unspecified Status: Acute Assessment and Plan: -Continue with her home medications. continue with buspirone. (4) UTI (urinary tract infection): Code(s): N39.0 - Urinary tract infection, site not specified Status: Acute Assessment and Plan: -the patient was started on Rocephin. -Urine and blood cultures are pending. (5) Hypokalemia: Code(s): E87.6 - Hypokalemia Status: Acute Assessment and Plan: - potassium was replaced in the emergency room. - please monitor daily. - check magnesium -patient's magnesium was on the borderline tonight so I will replace it. DS: Summary Hospital Course Reason for hospitalization: Flu-like symptoms Narrative: This is a 76-year-old female patient who has a history of atrial fibrillation and is on Coumadin.? The patient does not take any rate controlling medication.? The patient stated that she does take her warfarin but is not compliant with other medications.? The patient also stated that she has some anxiety.? Today she came to the emergency room with epigastric pain nausea vomiting.? This started this morning.? She it is associated with fever.? She denies any diarrhea or dysuria.? Her white count is up to 12.3.? H&H is 11.2 and 34.6.? Her sodium was slightly low at 136.? Potassium was 3.3.? The patient has 1+ leukocyte esterase.? RBCs 6-7.? WBCs 4-6.? Influenza a and B and COVID were negative.? I empirically started the patient on Rocephin since she has an elevated white count and some leukocyte esterase in her urine.? She also had a fever.? The patient was found to be in AFib with RVR and she was started on a Cardizem drip.? She also was given IV fluids and Tylenol.? She was given Pepcid IV.? She was supplemented with p.o. potassium.? The patient is being admitted to observation on the date of service of 07/08/2022. Hospital Course: patient with history of A. Fib rate is controlled without any meds and anticoagulated with warfarin INR is 2.1, patient presented to ER with Flu-like symptoms, and in A. Fib with RVR, was placed on diltiazem drip, and rate is now controlled and patient is off the drip, patient has no complaints of CP, SOB or palpitation, patient urine is suspicious for UTI being treated with ceftriaxone, will monitor patient plan. patient was seen by seed cleaning machine operator was given metoprolol and heart rate remain controlled, patient is clinically stable will discharge the patient today. Time Spent with Patient Time attestation: Total time spent providing and/or coordinating discharge services: Exam Narrative: Patient is comfortable, NAD HEENT: eyes are clear and none icteric LUNGS:CTA HEART: RR S1S2 ABD: BS+, So
== END 2022-07-10 18:35 | disposition home or self-care (01) ==
LOC: ANHED 18:43 → ANHIMU 20:58
PROVIDERS: Nurse Practitioner; Physician Assistant; Admitting Provider Student in an Organized Health Care Education/Training Program; Emergency Provider Emergency Medicine; PCP Internal Medicine; Visit Provider Family Medicine
DX: I48.91 Unspecified atrial fibrillation (principal); D50.9 Iron deficiency anemia, unspecified; R41.9 Unspecified symptoms and signs involving cognitive functions and awareness; N39.0 Urinary tract infection, site not specified; E87.6 Hypokalemia; R50.9 Fever, unspecified; R10.13 Epigastric pain; R11.2 Nausea with vomiting, unspecified; E66.9 Obesity, unspecified; J98.11 Atelectasis; K40.90 Unilateral inguinal hernia, without obstruction or gangrene, not specified as recurrent; R94.31 Abnormal electrocardiogram [ECG] [EKG]; I51.7 Cardiomegaly; Z20.822 Contact with and (suspected) exposure to COVID-19; Z91.14 Patient's other noncompliance with medication regimen; Z87.891 Personal history of nicotine dependence; Z79.01 Long term (current) use of anticoagulants; Z79.899 Other long term (current) drug therapy
CPT/HCPCS: 36415; 71046; 74177; 76705; 80048; 80053; 81001; 82607; 82728; 82746; 83540; 83550; 83605; 83615; 83690; 83735; 84443; 84466; 85025; 85027; 85610; 85730; 87040; 87077; 87086; 87088; 87502; 93005; 96361; 96365; 96375; 96376; 99285; A9270; C9803; G0378; J0131; J0696; J1756; J2405; J3475; J7040; Q9967; U0003; U0005

== ENCOUNTER 2022-10-29 14:02 | Inpatient (IN) | payer MEDICARE, SELFPAY ==
[2022-10-29] VITALS (34 sets, daily range): BP systolic 155–201; BP diastolic 88–159; PULSE 87–129; RESP 14–35; TEMP 36.8; O2SAT 97–100
--- NOTE | ~2022-10-29 | US_ITS ---
EXAMINATION: US renal BI DATE: 10/30/2022 13:50 INDICATION: Renal infarct. TECHNIQUE: Multiple ultrasound grayscale images of the kidneys were obtained. COMPARISON: CT abdomen and pelvis 10/29/2022 FINDINGS: The right kidney measures 10.1 x 4.6 x 5.8 cm. The left kidney measures 10.5 x 5.7 x 4.8 cm. The kidn eys demonstrate normal parenchymal echogenicity. There is a 10 mm cyst in right kidney. There is no h ydronephrosis. The bladder is normal. IMPRESSION: 1. Normal kidney sizes. No hydronephrosis. Reviewed, dictated and finalized at location A. NICAL PLANNER
--- NOTE | ~2022-10-29 | CT_ITS ---
EXAMINATION: CT abdomen pelvis w con DATE: 10/29/2022 18:31 INDICATION: RUQ/epigastric pain, NVD TECHNIQUE: Computed tomography (CT) of the abdomen and pelvis was performed with 100 mL Omnipaque-350 intravenous contrast. Automated exposure control and iterative reconstruction technique were employe d. The dose-length product was 401.57 mGy-cm. COMPARISON: 07/08/2022. FINDINGS: Lower thorax: Small hiatal hernia. Aortic valve calcification. Coronary artery calcification and poss ible stents. Liver: Normal. Biliary/Gallbladder: Gallbladder is normal. Increased moderate pancreatic duct and mild distal common bile duct dilation Pancreas: No mass or duct dilation. Spleen: Granulomatous calcifications. Adrenals:No mass. Kidneys: Simple right midpole cyst. Wedge-shaped peripheral hypodensities in the left mid and lower p ole. No suspicious mass. No obstructive calcification. Mild bilateral hydronephrosis. GI tract: Distal esophageal and gastric wall edema. No small or large bowel dilation. Appendix not vi sualized. Diverticulosis without diverticulitis. Mesentery/Peritoneum: No ascites, mass, or free air. Retroperitoneum: No mass. Atherosclerotic abdominal aortic and/or arterial calcifications. Pelvis: Distended urinary bladder without wall thickening. Calcified uterine fibroid. Soft Tissues: Soft tissues and body wall unremarkable. Uncomplicated fat-containing right inguinal he rnia. Bones: No acute osseous finding. IMPRESSION: 1. Esophagitis/gastritis. 2. Increasing extrahepatic bile duct and pancreatic duct dilation, without obstructing stone or mass detected. 3. Wedge-shaped hypodensities in the left mid and lower renal pole as can be seen with renal infarct. 4. Mild bilateral hydronephrosis and urinary bladder distention, correlate for findings of urinary re tention. Reviewed, dictated and finalized at location K. H GRADER SUPERVISOR IMPRESSION: 1. Esophagitis/gastritis. 2. Increasing extrahepatic bile duct and pancreatic duct dilation, without obst ructing stone or mass detected. 3. Wedge-shaped hypodensities in the left mid and lower renal pole as can be se en with renal infarct. 4. Mild bilateral hydronephrosis and urinary bladder distention, correlate for findings of urinary retention.
--- NOTE | ~2022-10-29 | CT_ITS ---
Non-contrast CT scan of the Abdomen and Pelvis Clinical indication: Abdominal pain Technique: 5 mm axial scans were obtained through the abdomen and pelvis without intravenous or oral contrast. Dose reduction technique was used on this scan by utilizing automated exposure control and iterative reconstruction technique. The dose-length product (DLP) was 871.70 mGy-cm. COMPARISON: 10/29/2022 Findings: Images through the lung bases reveal calcified subcarinal and right hilar lymph nodes. The re is mild bibasilar atelectatic change. The liver, kidneys, pancreas, and adrenals appear normal. Calcified splenic granulomas are present. T here is vicarious excretion of contrast in the gallbladder. There is no aortic aneurysm. There is no evidence of bowel obstruction. Questionable mild wall thickening of several small bowel l oops, with mild haziness in the central mesentery. Images through the pelvis were performed. Probable minimal pelvic ascites noted. Urinary bladder col lapsed around a Barnard catheter. Calcified uterine fibroids are present. Impression: Possible infectious/inflammatory small bowel enteritis, otherwise nonspecific. Trace pelvic free fluid. Evidence of prior granulomatous disease. Calcified uterine fibroids. Reviewed, dictated and finalized at location . CATED DRIVER Impression: Possible infectious/inflammatory small bowel enteritis, otherwise nonspecific. Trace pelvic free fluid. Evidence of prior granulomatous disease. Calcified uterine fibroids.
--- NOTE | ~2022-10-29 | US_ITS ---
EXAMINATION: US abdomen limited DATE: 10/30/2022 13:50 INDICATION: Vomiting. TECHNIQUE: Multiple grayscale and Doppler ultrasound images of the abdomen were obtained. COMPARISON: CT abdomen and pelvis 10/29/2022 FINDINGS: The visualized portions of the head, body, and tail of the pancreas are normal. The pancrea tic duct is normal in caliber. The liver is normal without focal lesion. There is normal flow in main portal vein. The gallbladder is normal in size. No gallstones or bowel wall thickening. There is no sonographic Cornejo sign. The common duct is normal and measures 5 mm. IMPRESSION: 1. Normal right upper quadrant ultrasound. Reviewed, dictated and finalized at location A. PAK DRIVER
--- NOTE | ~2022-10-29 | US_ITS ---
EXAMINATION: US venous doppler [facility] DATE: 10/30/2022 13:50 INDICATION: Lower limb edema and pain. TECHNIQUE: Grayscale ultrasound images without and with compression and Doppler ultrasound images of the bilateral lower extremity veins were obtained. COMPARISON: None. FINDINGS: The visualized portions of right common femoral vein, profunda (deep) femoral vein, femoral vein, pop liteal vein, peroneal veins, posterior tibial veins, and greater saphenous vein outflow are patent. The visualized portions of left common femoral vein, profunda femoral vein, femoral vein, popliteal v ein, peroneal veins, posterior tibial veins, and greater saphenous vein outflow are patent. IMPRESSION: 1. No deep venous thrombosis. Reviewed, dictated and finalized at location A. INTERN
--- NOTE | 2022-10-29 16:45 | ED.NAVMDI ---
HPI - Nausea/Vomiting/Diarrhea General Chief complaint: Nausea/Vomiting/Diarrhea Stated complaint: nausea Time Seen by Provider: 10/29/22 16:29 Source: patient Mode of arrival: EMS Limitations: no limitations History of Present Illness HPI Narrative: Patient is a 76 y/o female who presents to the ED via EMS with c/o upper abdominal pain. Patient reports she felt fine yesterday, but developed diarrhea this morning. Denied any rectal bleeding or melena. She then developed pain in her upper abdomen with nausea and vomiting, chills, sweats. No known fever. She has had several episodes of emesis, but denies current nausea. She has not tried anything for pain. Denies history of similar pain. Denies urinary symptoms, cough or cold symptoms, CP, SOB. Related Data Home Medications Medication Instructions Recorded Confirmed warfarin 5 mg tablet 7 mg PO DAILY 12/24/21 07/08/22 calcium carb 300 mg-D3 800 1 tablet PO DAILY 02/10/22 07/08/22 unit-mag ox 25 mg-rn endoscopy 0.5 mg-katrin-Zn tablet (Caltrate + D3 Plus Minerals) nitroglycerin 0.4 mg sublingual 0.4 mg sublingual DIRECTED PRN 02/10/22 07/08/22 tablet Chest Pain buspirone 10 mg tablet 10 mg PO BID PRN Anxiety 07/08/22 07/08/22 Allergies Allergy/AdvReac Type Severity Reaction Status Date / Time pseudoephedrine Allergy Unknown Verified 10/29/22 16:49 [From [facility]] Review of Systems Review of Systems: CONSTITUTIONAL: Denies fever, chills, or sweats. ENT: Denies rhinorrhea, congestion, sore throat. CARDIOVASCULAR: Denies chest pain. RESPIRATORY: Denies cough or dyspnea. GASTROINTESTINAL: See HPI. GENITOURINARY: Denies dysuria or hematuria. All systems reviewed & are unremarkable except as noted in HPI and below PMFSH Past Medical History Medical History A-fib Anxiety Obesity Surgical History Surgical History H/O colonoscopy H/O tubal ligation Family History Family History Mother Diabetes mellitus Father Heart disease Sibling Cerebrovascular accident Chronic obstructive pulmonary disease Asthma Prostate carcinoma Son Colon cancer Daughter Allergies Social History Social History Social History: the patient has known durable power managing attorney for healthcare. She is . She had 6 children. 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 She is a former smoker. She Does not drink alcohol, smoke marijuana or use illicit drugs. code status full code Smoking packs per day: 0.2 Smoking cigarettes per day: 4.0 Years smoked: 2 Smoking pack-years: 0.40 Smoking status: Former smoker Tobacco type: cigarettes Second hand tobacco smoke exposure: Yes Alcohol intake: former Substance use: never Substance use type: does not use Living arrangements: with family Spiritual care concerns: No Exam Narrative: GENERAL: Well appearing, well-nourished, non-toxic, in mild acute distress d/t pain. HEAD: Normocephalic, atraumatic. NECK: Supple. No adenopathy, no masses. RESPIRATORY: Airway patent, respirations nonlabored. Clear to auscultation bilaterally, no rales, rhonchi, wheezing. CARDIOVASCULAR: Borderline tachycardic with regular rhythm without murmurs, rubs, or gallops. Radial pulses 2+ and equal bilaterally. ABDOMINAL: Soft, diffuse tenderness to palpation throughout abdomen, worst in epigastric and LLQ regions, nondistended, no hepatosplenomegaly. Normoactive BS. MUSCULOSKELETAL: Moves all extremities. Strength/ROM intact without gross deformities. SKIN: Warm, dry, normal color. No rashes. NEURO: A&O X3. Speech clear. Cranial nerves II-XII grossly intact. No ataxic movements. PSYCHIATRIC: Appropriate mood and affect. Normal
[2022-10-29 17:25] LABS: Basophils Percent Auto 0.2 % (0.2-1.2); Eosinophils Percent Auto 0.2 % (0-4.4); Hematocrit 40.3 % (37.0-47.0); Hemoglobin 13.5 g/dL (12.0-15.0); Immature Granulocyte Percent A 0.6 % (0-0.5); Lymphocytes Absolute Auto 0.98 K/mm3 (0.9-3.2); Lymphocytes Percent Auto 5.8 % (18.3-44.2); Mean Corpuscular HGB Conc 33.5 g/dl (32-36); Mean Corpuscular Volume 95.5 fl (80-100); Mean Platelet Volume 10.7 fl (7.4-10.4); Monocytes Absolute Auto 0.7 K/mm3 (0.1-0.6); Monocytes Percent Auto 4.2 % (2.6-8.5); Platelet Count Result 208 k/mm3 (150-375); Red Blood Count 4.22 M/mm3 (4.2-5.4); Red Cell Distribution Width 12.4 % (11.5-14.5); White Blood Count 16.9 K/mm3 (4.5-10.0)
[2022-10-29] MEDS: SODIUM CHLORIDE 0.9% IV 1,000 ML 999 ML IV CONT ×2 (17:27→19:00)
[2022-10-29] MEDS: MORPHINE SULFATE (*CRX) 4 MG/ML INJ IV PUSH (17:28)
[2022-10-29] MEDS: ONDANSETRON INJ 4 MG/2 ML VIAL IV PUSH ×2 (17:28→21:00)
[2022-10-29 18:00] LABS: Influenza A QL RT-PCR Negative (Negative); Influenza B QL RT-PCR Negative (Negative); SARS-CoV-2 RNA PCR Negative
[2022-10-29 18:05] LABS: Appearance Urine Clear (Clear); Bilirubin Urine Negative (Negative); Blood Urine 1+ (Negative); Color Urine Yellow (Yellow); Glucose Urine UA Trace mg/dL (Negative); Ketones Urine 3+ mg/dL (Negative); Leukocyte Esterase Ur Trace LEU/UL (Negative); Nitrate Urine Negative (Negative); Protein Urine 2+ mg/dL (Negative); Specific Grav Ur 1.025 (1.001-1.035); Urobilinogen Urine 0.2 mg/dL (<2.0); pH Urine 5.5 (5.0-9.0)
[2022-10-29 18:11] LABS: Alanine Aminotransferase 25 U/L (6-35); Albumin Level 4.5 g/dL (3.5-5.1); Alkaline Phosphatase 87 U/L (38-126); Anion Gap 14 mmol/L (8-16); Aspartate Amino Transferase 43 U/L (14-36); Bilirubin,Total 1.3 mg/dL (0.2-1.3); Blood Urea Nitrogen 20 mg/dL (7-17); Carbon Dioxide 17 mmol/L (22-30); Chloride 107 mmol/L (98-107); Estimated CRCL calculation 55 ml/min; Estimated Glomerular Filt Rate > 60; Glucose 182 mg/dL (65-110); Lipase 77 U/L (23-300); Potassium 2.9 mmol/L (3.4-5.0); Sodium 138 mmol/L (137-145)
[2022-10-29 18:12] LABS: Bacteria Urine Trace /hpf; Squamous Epithelial Cell Urine Occasional /hpf (Few); WBC Urine 0-3 /hpf
[2022-10-29 18:27] LABS: Add Urine Microscopic? YES
--- NOTE | 2022-10-29 19:20 | ECG_ITS ---
Measurements Intervals [place] Rate: 109 P: MD: 0 QRS: -19 QRSD: 90 T: -9 QT: 364 QTc: 491 Interpretive Statements ATRIAL FIBRILLATION WITH RAPID VENTRICULAR RESPONSE INCOMPLETE RIGHT BUNDLE BRANCH BLOCK INFERIOR INFARCT, AGE INDETERMINATE BORDERLINE ST ABNORMALITY- ANTEROLATERAL LEADS ABNORMAL ECG COMPARED TO ECG 07/08/2022 17:03:31 NO SIGNIFICANT CHANGES Electronically Signed On 10-30-2022 7:16:45 NEON SIGN SERVICER by Jose Starkey D.O.
--- NOTE | 2022-10-29 19:31 | PC.NURSE ---
Assumed care of pt. at this time Report from PATRICE Pierson
[2022-10-29 19:52] LABS: INR 1.1; Prothrombin Time 13.9 Seconds (11.1-14.7)
[2022-10-29 19:53] LABS: Partial Thromboplastin Time 21.4 SECONDS (22.3-36.8)
[2022-10-29] MEDS: BELLADONNA ALK/PHENOB ELIX 10 ML, MAG HYDROX/ALUMINUM HYD/SIMETH 30 ML, LIDOCAINE HCL 2... PO (20:16)
[2022-10-29] MEDS: POTASSIUM CHLORIDE 20 MEQ TABLET 40 MEQ PO (20:17)
[2022-10-29] MEDS: METOPROLOL TARTRATE 50 MG TAB PO (20:18)
--- NOTE | 2022-10-29 20:26 | PM.IMHP ---
H&P: HPI History of Present Illness Date/Time: 10/29/22 20:26 Chief Complaint: Abdominal pain Narrative: 76-year-old female with a past medical history of anxiety, hypertension, atrial fibrillation on chronic anticoagulation with Coumadin who presented to the ER via EMS with the abdominal pain. The patient reports that she felt her usual state health until this morning when she began having severe generalized abdominal pain. Her symptoms started initially with diarrheal stools. She has had several episodes of incontinent watery stools. She reports that her stools are always black due to taking iron supplements. Her symptoms were then followed by a vomiting. She had emesis of anything she tried to eat or drink. She denies any coffee-ground emesis or hematemesis. She was having some cold sweats associated with her nausea and vomiting. However she did not have any measured fevers and she was afebrile in the ER. Due to her symptoms she was not able to take her home medications this morning her metoprolol and warfarin. She reported that the abdominal pain was initially in the periumbilical and generalized anterior upper abdomen but then did start to radiate to the left side couple of hours later. Pain was severe in intensity. She could not find a comfortable position. He was aching and cramping in nature. She has infrequent episodes of urinary incontinence. She denies any dysuria. CT demonstrated distended bladder with evidence of hydroureter. However bladder scan performed in the ER demonstrated only 120 mL of retained urine postvoid. CT also demonstrated which like hypodensity in the left medial kidney and lower renal pole consistent with infarction. Also incidental findings of worsening biliary duct and pancreatic duct dilatation without evidence of stone. Other [place] [address], hemoconcentration with hemoglobin 13.5 up from 9.8 last year, subtherapeutic INR of 1.2 potassium of 2.9 serum bicarb low at 17 BUN elevated 20, mildly elevated AST and LDH. UA demonstrates 2+ protein trace glucose 3+ ketones and 1+ blood. Patient had received GI cocktail and oral potassium in the ER. She vomited the GI cocktail oral potassium and her p.o. metoprolol that was administered. She then received 40 mEq of IV potassium and Zofran. The patient denies known history of heart failure but states that her primary care doctor started her on Lasix after hospitalization in . EKG demonstrated mild QT prolongation at 491 with a rate of 101. Source of information obtained from ER physician report, EMS report, review of past medical records. The patient's case was discussed with the patient's daughter over the phone and her granddaughter with the patient's permission. Review of Systems Review of Systems: 12 systems were reviewed with pertinent positives and negatives per HPI. Except as documented in the HPI, all other systems were reviewed and are negative. [facility] Past Medical History Medical History (Updated 10/30/22 @ 05:37 by Mya Vasquez DO) A-fib Anxiety Coronary artery disease Coronary calcifications noted on imaging however patient denies any history of known coronary artery disease. She does have p.r.n. nitroglycerin on her home med rec Hearing loss Hearing aids Obesity Surgical History Surgical History (Updated 10/30/22 @ 05:05 by Mya Vasquez DO) H/O colonoscopy (~02/2022) Hemorrhoids and prior polypectomy with her most recent colonoscopy not demonstrating polyps H/O tubal ligation Family History Family History Mother Diabetes mellitus Father Heart disease Sibling Cerebrovascular accident Chronic obstructive pulmonary disease Asthma Prostate carcinoma Son Colon cancer Daughter Allergies Social History Social History (Updated 10/30/22 @ 05:24 by Mya Vasquez DO) Social History: She was 3 times bu
[2022-10-29] MEDS: HEPARIN SODIUM 5,000 UNITS/ML VIAL 5500 UNITS IV PUSH (20:34)
[2022-10-29] MEDS: HEPARIN SOD/D5W 100 UNITS/ML 25,000 UNITS/250 ML BAG 12 UNITS IV CONT (20:35)
[2022-10-29] MEDS: POTASSIUM CHLORIDE INJ 40 MEQ in SODIUM CHLORIDE 0.9% IV 500 ML 130 MEQ IVPB (20:36)
[2022-10-29 21:21] LABS: Lactate Dehydrogenase 470 U/L (120-246)
[2022-10-30] VITALS (30 sets, daily range): BP systolic 97–155; BP diastolic 56–104; PULSE 94–166; RESP 16–31; TEMP 36.3–36.7; O2SAT 97–100; BMI 27.7
--- NOTE | 2022-10-30 00:27 | PC.NURSE ---
post residual void 45
[2022-10-30 03:57] LABS: INR 1.2; Prothrombin Time 14.5 Seconds (11.1-14.7)
[2022-10-30 03:59] LABS: Partial Thromboplastin Time 99.3 SECONDS (22.3-36.8)
[2022-10-30] MEDS: MORPHINE SULFATE (*CRX) 4 MG/ML INJ IV PUSH ×3 (04:38→16:27)
[2022-10-30] MEDS: ONDANSETRON INJ 4 MG/2 ML VIAL IV PUSH (04:38)
[2022-10-30] MEDS: SODIUM CHLORIDE 0.9% IV 1,000 ML 100 ML IV CONT ×3 (04:45→22:17)
--- NOTE | 2022-10-30 05:00 | PC.NURSE ---
Kaleb Noble Dr. to hold CBC unil time for MAG and CMP. RN also to administer Protonix early.
--- NOTE | 2022-10-30 05:01 | ECG_ITS ---
Measurements Intervals [place] Rate: 97 P: TN: 0 QRS: -25 QRSD: 80 T: -12 QT: 375 QTc: 477 Interpretive Statements ATRIAL FIBRILLATION INCOMPLETE RIGHT BUNDLE BRANCH BLOCK INFERIOR INFARCT, AGE INDETERMINATE ABNORMAL ECG COMPARED TO ECG 10/29/2022 20:52:56 HEART RATE HAS DECREASED Electronically Signed On 10-30-2022 7:22:39 COPYRIGHT MANAGER by Jose Starkey D.O.
[2022-10-30] MEDS: METOPROLOL TARTRATE INJ 5 MG/5 ML VIAL IV PUSH ×3 (05:04→23:11)
[2022-10-30] MEDS: PANTOPRAZOLE SODIUM IV 40 MG VIAL IV PUSH ×2 (05:05→22:05)
--- NOTE | 2022-10-30 10:02 | P.PNIM_ITS ---
Progress Note: A&P Assessment and Plan (1) Renal infarct: Onset Date: 10/29/22 Code(s): N28.0 - Ischemia and infarction of kidney Status: Acute Assessment and Plan: Patient presented to the ED due to diarrhea, nausea, and vomiting. CT of abdomen pelvis revealed renal infarct. * renal infarct secondary to subtherapeutic INR. * She states her Coumadin dose was decreased from 7 mg to 5 mg last month. * She has been compliant with her warfarin. * Discussed with patient that I believe she should be transitioned to Eliquis or Xarelto as an outpatient * Consult care coordination for Xarelto and Eliquis pricing * Patient started on heparin drip for renal infarct. * Heparin protocols initiated * Renal ultrasound ordered * Patient experiencing tachycardia which could be related to infarction and abdominal pain * Continue with analgesics for pain (2) Hypokalemia: Code(s): E87.6 - Hypokalemia Status: Acute Assessment and Plan: Patient received IV potassium supplementation in the ED * Potassium stable * Magnesium stable (3) Subtherapeutic international normalized ratio (INR): Code(s): R79.1 - Abnormal coagulation profile Status: Acute Assessment and Plan: The patient is agreeable to transitioning to a novel anticoagulant (Eliquis or Xarelto) on discharge. (4) Intrahepatic bile duct dilation: Code(s): K83.8 - Other specified diseases of biliary tract Status: Acute Assessment and Plan: Not likely significant as the patient has had some chronic dilatation previously. * Patient has been upper abdominal pain * Pain to palpation and in the right upper quadrant * Her AST is only minimally elevated and she only has a mild elevation of her LDH. * RUQ US ordered (5) Atrial fibrillation with rapid ventricular response: Code(s): I48.91 - Unspecified atrial fibrillation Status: Acute Assessment and Plan: Due to missing her medications in vomiting up her medications in combination with likely some volume depletion. Patient given 1 time dose of IV Lopressor. * Once nausea and vomiting subsided patient can resume metoprolol home dose * Given her report of variable lower extremity edema and recent initiation of Lasix since her hospitalization in July will check echocardiogram to evaluate cardiac structure and function. * Will also evaluate valves to rule out possible vegetation syncope contributing the patient's renal infarct. 10/30/22 * Patient HR in the 130's -140's * Pain and renal infarction could be contributing to tachycardia * 1 time dose of metoprolol given * Home metoprolol to be resumed tonight (6) Esophagitis: Code(s): K20.90 - Esophagitis, unspecified without bleeding Status: Acute Assessment and Plan: CT did demonstrate evidence of gastritis and esophagitis. Will place patient on Protonix IV b.i.d.. * The patient is also having some diarrhea so gastroenteritis is also a possibility in the differential. * She is on IV fluid hydration and will continue supportive care. * However will need to repeat EKG is the patient's QTC was just above the cutoff for normal in the ER. * Repeat EKG QTc 477 * Phenergan prescribed over Zofran for nausea due to QTc prolongation (7) Gastritis: Code(s): K29.70 - Gastritis, unspecified, without bleeding Status: Acute Assessment and Plan: see above.
--- NOTE | 2022-10-30 10:02 | PM.IMPN ---
Progress Note: A&P Assessment and Plan (1) Renal infarct: Onset Date: 10/29/22 Code(s): N28.0 - Ischemia and infarction of kidney Status: Acute Assessment and Plan: Patient presented to the ED due to diarrhea, nausea, and vomiting. CT of abdomen pelvis revealed renal infarct. renal infarct secondary to subtherapeutic INR. She states her Coumadin dose was decreased from 7 mg to 5 mg last month. She has been compliant with her warfarin. Discussed with patient that I believe she should be transitioned to Eliquis or Xarelto as an outpatient Consult care coordination for Xarelto and Eliquis pricing Patient started on heparin drip for renal infarct. Heparin protocols initiated Renal ultrasound ordered Patient experiencing tachycardia which could be related to infarction and abdominal pain Continue with analgesics for pain (2) Hypokalemia: Code(s): E87.6 - Hypokalemia Status: Acute Assessment and Plan: Patient received IV potassium supplementation in the ED Potassium stable Magnesium stable (3) Subtherapeutic international normalized ratio (INR): Code(s): R79.1 - Abnormal coagulation profile Status: Acute Assessment and Plan: The patient is agreeable to transitioning to a novel anticoagulant (Eliquis or Xarelto) on discharge. (4) Intrahepatic bile duct dilation: Code(s): K83.8 - Other specified diseases of biliary tract Status: Acute Assessment and Plan: Not likely significant as the patient has had some chronic dilatation previously. Patient has been upper abdominal pain Pain to palpation and in the right upper quadrant Her AST is only minimally elevated and she only has a mild elevation of her LDH. RUQ US ordered (5) Atrial fibrillation with rapid ventricular response: Code(s): I48.91 - Unspecified atrial fibrillation Status: Acute Assessment and Plan: Due to missing her medications in vomiting up her medications in combination with likely some volume depletion. Patient given 1 time dose of IV Lopressor. Once nausea and vomiting subsided patient can resume metoprolol home dose Given her report of variable lower extremity edema and recent initiation of Lasix since her hospitalization in July will check echocardiogram to evaluate cardiac structure and function. Will also evaluate valves to rule out possible vegetation syncope contributing the patient's renal infarct. 10/30/22 Patient HR in the 130's -140's Pain and renal infarction could be contributing to tachycardia 1 time dose of metoprolol given Home metoprolol to be resumed tonight (6) Esophagitis: Code(s): K20.90 - Esophagitis, unspecified without bleeding Status: Acute Assessment and Plan: CT did demonstrate evidence of gastritis and esophagitis. Will place patient on Protonix IV b.i.d.. The patient is also having some diarrhea so gastroenteritis is also a possibility in the differential. She is on IV fluid hydration and will continue supportive care. However will need to repeat EKG is the patient's QTC was just above the cutoff for normal in the ER. Repeat EKG QTc 477 Phenergan prescribed over Zofran for nausea due to QTc prolongation (7) Gastritis: Code(s): K29.70 - Gastritis, unspecified, without bleeding Status: Acute Assessment and Plan: see above. (8) Abnormal white blood cell count: Code(s): D72.9 - Disorder of white blood cells, unspecified Status: Acute Assessment and Plan: Elevated white count on presentation. 10/30/22 white blood cell count 20.6 Blood cultures ordered Repeat labs in the morning Right upper quadrant ultrasound ordered Urine and likely source of infection Patient did have gastritis/esophagitis on CT (9) Abdominal pain: Code(s): R10.9 - Unspecified abdominal pain
[2022-10-30 10:07] LABS: Basophils Absolute Auto 0.1 K/mm3 (0.0-0.1); Basophils Percent Auto 0.6 % (0.2-1.2); Eosinophils Percent Auto 0.1 % (0-4.4); Hematocrit 50.6 % (37.0-47.0); Hemoglobin 15.9 g/dL (12.0-15.0); Immature Granulocyte Absolute 0.14 K/mm3 (0.00-0.031); Immature Granulocyte Percent A 0.7 % (0-0.5); Lymphocytes Absolute Auto 1.32 K/mm3 (0.9-3.2); Lymphocytes Percent Auto 6.4 % (18.3-44.2); Mean Corpuscular HGB Conc 31.4 g/dl (32-36); Mean Corpuscular Hemoglobin 31.1 pg (26-34); Mean Platelet Volume 10.9 fl (7.4-10.4); Monocytes Absolute Auto 1.2 K/mm3 (0.1-0.6); Monocytes Percent Auto 5.8 % (2.6-8.5); Neutrophils Absolute Auto 17.8 K/mm3 (1.3-6.7); Neutrophils Percent Auto 86.4 % (45.5-73.1); Platelet Count Result 202 k/mm3 (150-375); Red Blood Count 5.11 M/mm3 (4.2-5.4); White Blood Count 20.6 K/mm3 (4.5-10.0)
[2022-10-30 10:17] LABS: INR 1.2; Prothrombin Time 15.2 Seconds (11.1-14.7)
[2022-10-30 10:18] LABS: Magnesium 1.7 mg/dL (1.6-2.3)
[2022-10-30 10:19] LABS: Alanine Aminotransferase 33 U/L (6-35); Albumin Level 4.5 g/dL (3.5-5.1); Alkaline Phosphatase 89 U/L (38-126); Anion Gap 12 mmol/L (8-16); Aspartate Amino Transferase 93 U/L (14-36); Bilirubin,Total 1.8 mg/dL (0.2-1.3); Blood Urea Nitrogen 18 mg/dL (7-17); Calcium 8.1 mg/dL (8.4-10.2); Carbon Dioxide 21 mmol/L (22-30); Chloride 109 mmol/L (98-107); Estimated CRCL calculation 44 ml/min; Estimated Glomerular Filt Rate > 60; Glucose 161 mg/dL (65-110); Potassium 4.3 mmol/L (3.4-5.0); Sodium 142 mmol/L (137-145)
--- NOTE | 2022-10-30 11:26 | PC.NURSE ---
This patient, Lesia Aguilera, was admitted to Medical Room 348-01. Patient/family oriented to hospital policies and general routines including ID bracelet, bed and alarms, visiting hours, pain management, procedures, bathroom and other care routines, personal items, smoking policy, room service/diet, and visiting hours. Information on how to activate the Rapid Response Team has been discussed. Patient/Family are encouraged to report perceived risks to care and to ask questions if they do not understand what they are told or what they should do.
[2022-10-30 12:33] LABS: Iron 24 ug/dL (37-170)
[2022-10-30 12:39] LABS: Transferrin 236 mg/dL (206-381)
[2022-10-30 12:43] LABS: Percent Iron Saturation 8 % (20-50)
[2022-10-30] MEDS: HEPARIN SOD/D5W 100 UNITS/ML 25,000 UNITS/250 ML BAG 10 UNITS IV CONT (15:54)
[2022-10-30 17:46] LABS: Lactic Acid Reflex 2.4 mmol/L (0.7-2.0)
[2022-10-30 19:01] LABS: Folic Acid 15.3 ng/mL (2.76->20)
--- NOTE | 2022-10-30 20:01 | PC.NURSE ---
This patient, Lesia Aguilera, was received from [facility] on 10/30/22 at 2000. Patient/family oriented to unit policies and routines.
[2022-10-30 20:32] LABS: Reflex Lactic Acid Yes or No Add Lactic
--- NOTE | 2022-10-30 20:49 | PC.NURSE ---
patient was transferred to [facility] at 1999. patient is in considerable pain, constant moaning. patient bladder is distended and unable to urinate. dr soria is aware and en route to place catheter. multiple attempts on 3rd floor were unsuccessful.
[2022-10-30] MEDS: LIDOCAINE HCL 2% GEL UROJET 10 ML PKG MUCOUS MEM (21:00)
--- NOTE | 2022-10-30 21:39 | PC.NURSE ---
dr soria placed an 18f sanchez catheter in bladder at 2130. patient is in considerable pain. will clamp bag for 20 min once urine output is at 1000.
--- NOTE | 2022-10-30 21:57 | WPDURCON ---
Assessment and Plan Assessment and plan (1) Urinary retention: Code(s): R33.9 - Retention of urine, unspecified Status: Acute (2) Renal infarct: Onset Date: 10/29/22 Code(s): N28.0 - Ischemia and infarction of kidney Status: Acute Assessment and Plan: Urinary retention secondary to urethral stricture the this 18 F at the bedside and placed an 18 F urethral catheter. Renal findings on CT scan showing hypoperfusion of segments of her left kidney. Although read as infarction this may be segmental pyelonephritis instead. I have sent urine for culture and recommend repeat renal imaging in 3-4 weeks. Urology Consult Note HPI Date Seen: 10/30/22 Requesting Physician: Mya Vasquez DO Primary Care Provider: Danyel GastonMD Consult Narrative Narrative: Lesia Aguilera is a 76 year old female unknown to our practice without known prior history of urological problems. She was admitted yesterday with nausea vomiting abdominal pain. Throughout admission I do not see that she has had any urine output charted and she does not recall voiding since admission. She is now noted, both by physical exam and bladder scan, to have marked bladder distention. CT scan of the abdomen pelvis shows incomplete bladder emptying. There is also suggestion of possible renal infarct, showing segmental hypoperfusion. Review of Systems Cardiovascular: Cardiovascular: Denies chest pain, Denies lightheadedness, Denies palpitations and Denies dyspnea Respiratory: Respiratory: Denies dyspnea Gastrointestinal: Gastrointestinal: Reports abdominal pain, Denies diarrhea, Reports nausea and Reports vomiting Genitourinary: Genitourinary: Denies hematuria, Reports urinary frequency and Denies dysuria Endocrine: Endocrine: Denies palpitations [facility] Past Medical History Medical History (Updated 10/30/22 @ 22:00 by Beni Brandon MD) A-fib Anxiety Coronary artery disease Coronary calcifications noted on imaging however patient denies any history of known coronary artery disease. She does have p.r.n. nitroglycerin on her home med rec Hearing loss Hearing aids Obesity Surgical History Surgical History (Updated 10/30/22 @ 05:05 by Mya Vasquez DO) H/O colonoscopy (~02/2022) Hemorrhoids and prior polypectomy with her most recent colonoscopy not demonstrating polyps H/O tubal ligation Family History Family History Mother Diabetes mellitus Father Heart disease Sibling Cerebrovascular accident Chronic obstructive pulmonary disease Asthma Prostate carcinoma Son Colon cancer Daughter Allergies Social History Social History (Updated 10/30/22 @ 05:24 by Mya Vasquez DO) Social History: She was 3 times but her last in 2009. She had 6 children. 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 She is a former smoker. She does not drink alcohol, smoke marijuana or use illicit drugs. Code status full code Smoking packs per day: 0.2 Smoking cigarettes per day: 4.0 Years smoked: 2 Smoking pack-years: 0.40 Smoking status: Former smoker Tobacco type: cigarettes Second hand tobacco smoke exposure: Yes Alcohol intake: never Substance use: never Substance use type: does not use Lack of Transportation: No Lack of Food: Sometimes True Current Housing: I Have Housing Concerned About Future Housing: No Difficulty Paying Gas/Electric Bills: No Difficulty Paying for Meds: No Currently Unemployed: No Education: Associate Degree Difficulty w/ Childcare or Family Care: No Living arrangements: with family Spiritual care concerns: No Meds Home Medications and Allergies Home Medications Medication Instructions Recorded Confirmed Type warfarin 5 mg tablet 5 mg PO DAILY 12/24/21
[2022-10-30] MEDS: METOPROLOL TARTRATE 50 MG TAB PO (22:05)
[2022-10-30] MEDS: HYDROmorphone HCL INJ (*CRX) 1 MG/ML SYR IV PUSH (22:09)
[2022-10-30 22:31] LABS: Partial Thromboplastin Time 41.3 SECONDS (22.3-36.8)
[2022-10-30 22:50] LABS: Lactic Acid 2.7 mmol/L (0.7-2.0)
[2022-10-30] MEDS: HEPARIN SODIUM 5,000 UNITS/ML VIAL 5500 UNITS IV PUSH (23:12)
[2022-10-31] VITALS (14 sets, daily range): BP systolic 71–108; BP diastolic 50–75; PULSE 91–139; RESP 16–20; TEMP 36.4–37.2; O2SAT 97–100; BMI 27.7
--- NOTE | 2022-10-31 | ECHO_ITS ---
Patient Info Name: Lesia Aguilera Age: 76 years : 1945 Gender: Female Ht: 66 in Wt: 176 lbs BSA: 1.95 m2 HR: 99 bpm BP: 89 / 50 mmHg Heart Rhythm: Atrial Fibrillation Technical Quality: Fair Exam Date: 10/31/2022 1:16 PM Exam Location: [facility] Pulmonary Patient Status: Inpatient Admit Date: 10/31/2022 Staff Ordering Physician: Mya Vasquez DO Foundry Superintendant: Keisha Retana RDCS Attending Provider: Mya Vasquez DO Referring Physician: Pedro EASTON; Exam Type: CA echo doppler color flow Study Info Indications - atrial fibrillation Complete two-dimensional, color flow and Doppler transthoracic echocardiogram is performed. Summary 1. Complete two-dimensional, color flow and Doppler transthoracic echocardiogram is performed. 2. Left ventricular chamber dimension is normal. 3. Left ventricular systolic function is normal, estimated at 60-65%. 4. There is mildly increased left ventricular wall thickness. 5. The left ventricular diastolic function is normal. 6. E/e' 9 is minimally elevated. 7. Atrial fibrillation. 8. There is mild tricuspid valve regurgitation. 9. No pulmonary hypertension, estimated pulmonary arterial systolic pressure is 39 mmHg. Left Ventricle E/e' 9 is minimally elevated. Atrial fibrillation. Left ventricular chamber dimension is normal. Left ventricular systolic function is normal, estimated at 60-65%. There is mildly increased left ventricular wall thickness. The left ventricular diastolic function is normal. Right Ventricle Right ventricular chamber dimension is normal. Right ventricular systolic function is normal. Left Atria Left atrial chamber dimension is normal. Right Atria Right atrial chamber dimension is normal. Aortic Valve The aortic valve is trileaflet. There is no aortic valve stenosis. There is no aortic valve regurgitation. Pulmonic Valve There is no pulmonic regurgitation. Mitral Valve There is no mitral valve stenosis. There is no mitral valve regurgitation. Tricuspid Valve There is mild tricuspid valve regurgitation. No pulmonary hypertension, estimated pulmonary arterial systolic pressure is 39 mmHg. Pericardium/Pleural There is no pericardial effusion. Inferior Vena Cava Normal inferior vena cava with >50% collapse upon inspiration consistent with normal right atrial pressure, 5 mmHg. Aorta The aortic root size at the sinus of Valsalva is normal. Left Ventricular Outflow Tract Name Value Normal LVOT 2D LVOT Diameter 1.9 cm LVOT Doppler LVOT Peak Gradient 3 mmHg LVOT Mean Gradient 2 mmHg LVOT VTI 14 cm LVOT VTI/AV VTI Ratio 0.8 LVOT Stroke Volume 38 ml LVOT CO 4.2 l/min LVOT CI 2.2 l/min/m2 Pulmonic Valve Name Value Normal
[2022-10-31] MEDS: dilTIAZem HCl INJ 25 MG/5 ML VIAL 10 MG IV PUSH (00:41)
[2022-10-31] MEDS: dilTIAZem 100 MG/100 ML 100 MG/100 ML BAG IV CONT ×2 (00:42→16:35)
[2022-10-31] MEDS: HYDROmorphone HCL INJ (*CRX) 1 MG/ML SYR IV PUSH ×3 (04:06→21:01)
[2022-10-31 06:32] LABS: Alanine Aminotransferase 21 U/L (6-35); Albumin Level 3.2 g/dL (3.5-5.1); Alkaline Phosphatase 58 U/L (38-126); Anion Gap 10 mmol/L (8-16); Aspartate Amino Transferase 46 U/L (14-36); Bilirubin,Total 1.2 mg/dL (0.2-1.3); Blood Urea Nitrogen 34 mg/dL (7-17); Carbon Dioxide 15 mmol/L (22-30); Chloride 114 mmol/L (98-107); Estimated CRCL calculation 24 ml/min; Estimated Glomerular Filt Rate 38; Glucose 122 mg/dL (65-110); Potassium 4.6 mmol/L (3.4-5.0); Sodium 139 mmol/L (137-145)
--- NOTE | 2022-10-31 07:43 | WPDUROPN2 ---
Progress Note: A&P Assessment and Plan (1) Urinary retention: Code(s): R33.9 - Retention of urine, unspecified Status: Acute (2) Hydronephrosis due to obstruction of bladder: Code(s): N13.30 - Unspecified hydronephrosis; N32.0 - Bladder-neck obstruction Status: Acute (3) UTI (urinary tract infection): Code(s): N39.0 - Urinary tract infection, site not specified Status: Acute Assessment and Plan: Difficult catheterization (due to urethral stricture) for urinary retention last night. I suspect this retention led to acute cystitis and possibly left pyelonephritis (findings on CT scan showing segmental defects in left kidney may be related to segmental pyelonephritis and not renal infarct). Once I placed a catheter last night collected urine asked that a urine culture be sent do not see that it is pending at this point. I reorder urine culture. I would suggest reimaging her left kidney in 3-4 weeks. Since I have dilated a urethral stricture at the bedside I think we can plan a voiding trial she is feeling better and more ambulatory Subjective Subjective Date/Time Seen: 10/31/22 07:43 Feeling better Review of Systems Cardiovascular: Cardiovascular: Denies chest pain, Denies lightheadedness, Denies palpitations and Denies dyspnea Respiratory: Respiratory: Denies dyspnea Gastrointestinal: Gastrointestinal: Denies diarrhea, Denies nausea and Denies vomiting Genitourinary: Genitourinary: Denies hematuria and Denies dysuria Endocrine: Endocrine: Denies palpitations Exam Const: General: no acute distress Resp: Effort & Inspection: normal respiratory effort GI: Inspection: non-distended GI Palp: No abdominal tenderness and No Guarding due to palpation present (GI) Auscultation: normal bowel sounds Urinary Catheter: Urinary Catheter: patent and draining and urine clear Objective Data Vital Signs Vital Signs: Vital Signs - 24 hr 10/30/22 08:00 10/30/22 08:15 10/30/22 08:30 Temperature Pulse Rate 105 H 112 H 104 H Respiratory Rate 18 18 26 H Blood Pressure 137/100 H Pulse Oximetry Oxygen Delivery 10/30/22 08:45 10/30/22 09:00 10/30/22 09:15 Temperature Pulse Rate 119 H 111 H 111 H Respiratory Rate 28 H 25 H 26 H Blood Pressure Pulse Oximetry Oxygen Delivery 10/30/22 11:32 10/30/22 12:28 10/30/22 15:47 Temperature 97.4 F L Pulse Rate 133 H 133 H 128 H Respiratory Rate 20 Blood Pressure 141/91 H 98/56 L Pulse Oximetry 98 Oxygen Delivery 10/30/22 15:53 10/30/22 12:00 10/30/22 16:00 Temperature 97.7 F Pulse Rate 139 H 137 H Respiratory Rate 20 Blood Pressure Pulse Oximetry 97 Oxygen Delivery 10/30/22 20:25 10/30/22 20:00 10/30/22 22:05 Temperature 98.1 F Pulse Rate 141 H 141 H 164 H Respiratory Rate 16 16 Blood Pressure 135/76 Pulse Oximetry 99 99 Oxygen Delivery Room Air 10/30/22 20:00 10/30/22 23:03 10/30/22 23:11 Temperature 97.7 F Pulse Rate 163 H 166 H 163 H Respiratory Rate 16 Blood Pressure 97/62 L Pulse Oximetry 99 Oxygen Delivery 10/31/22 00:00 10/31/22 01:05 10/31/22 01:07 Temperature Pulse Rate 139 H 91 91 Respiratory Rate 16 Blood Pressure Pulse Oximetry 99 Oxygen Delivery Room Air 10/31/22 00:42 10/31/22 02:00 10/31/22 04:00 Temperature Pulse Rate 116 H 95 95 Respiratory Rate 16 Blood Pressure Pulse Oximetry 99 Oxygen Delivery Room Air 10/31/22 04:23 10/31/22 04:00 Temperature 97.6 F Pulse Rate 99 97 Respiratory Rate 20 Blood Pressure 89/50 L Pulse Oximetry 99 Oxygen Delivery Intake/Output Intake/Output: Intake & Output 10/28/22 10/29/22 10/30/22 10/31/22 23:59 23:59 23:59 23:59 Intake Total 1999 2690 Output Total 250 Balance 1999 2690 -250 Meds/Results Medications: Active Medications Generic Name Dose Route Start Last Admin Trade Name Freq PRN Reason Stop Dose A
[2022-10-31 09:03] LABS: Hematocrit 39.9 % (37.0-47.0); Hemoglobin 12.6 g/dL (12.0-15.0); Mean Corpuscular HGB Conc 31.6 g/dl (32-36); Mean Corpuscular Hemoglobin 31.1 pg (26-34); Mean Corpuscular Volume 98.5 fl (80-100); Mean Platelet Volume 10.6 fl (7.4-10.4); Platelet Count Result 175 k/mm3 (150-375); Red Blood Count 4.05 M/mm3 (4.2-5.4); Red Cell Distribution Width 13.5 % (11.5-14.5); White Blood Count 11.4 K/mm3 (4.5-10.0)
[2022-10-31] MEDS: PANTOPRAZOLE SODIUM IV 40 MG VIAL IV PUSH ×2 (09:53→20:51)
[2022-10-31 10:50] LABS: Band Neutrophils Percent 51 % (0-6); Lymphocytes Absolute Manual 1.14 K/mm3 (1.1-4.5); Lymphocytes Percent Manual 10 % (18-44); Monocytes Absolute Manual 0.34 K/mm3 (0.1-0.90); Monocytes Percent Manual 3 % (3-9); Neutrophils Absolute Manual 9.91 K/mm3 (1.7-7.2); Neutrophils Percent Manual 36 % (46-73); Platelet Estimate Adequate (Adequate); Schistocytes None Seen (NORMAL); Total Cells Counted 100
--- NOTE | 2022-10-31 12:44 | PM.IMPN ---
Progress Note: A&P Assessment and Plan (1) Enteritis: Code(s): K52.9 - Noninfective gastroenteritis and colitis, unspecified Status: Acute Assessment and Plan: Patient still with severe abdominal pain despite placement Barnard catheter. CT of the abdomen and pelvis repeated. There was no evidence of bowel obstruction but there is questionable mild wall thickening of several small bowel loops with mild haziness in the central mesentery concerning for small-bowel enteritis. Concern and symptoms appear to be out of proportion to her exam. She now has developed renal failure with metabolic acidosis. Her lactic acid last evening was only mildly elevated but will repeat this. Metabolic acidosis could be related to her new renal failure. Will start IV antibiotics. General surgery consult for possible small bowel ischemia from embolism given the fact that she has AFib and INR was subtherapeutic. Check ABG. Urine and BCx pending. 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 He also felt strongly that the patient had a left renal infarct. Spoke with upholsterer inside who recommended patient be transferred to tertiary care center but okay for ICU. Results discussed including the potential clinical course including sepsis and with patient and family at bedside. Patient does not want to be transferred to [place] or [facility]. Patient expressed to me in front of her family that she is a DNR. Nursing verified DNR with the patient as well and code status changed. Patient is alert and oriented x3 (thought year was 203). There was some delay in this process related to the patient reluctant to make a decision that is counter to her family's wishes. Surgeon spoke with patient and family. Patient is agreeable for [facility]. Dr Foote was called by surgeon and Dr Foote did agree to see the patient if a bed is available. In the intervening time, patient's SBP dropped to 70's. Fluid bolus was given and IV fluid rate increased. Diltiazem gtt stopped. Patient moved to ICU with plans for central line placement and pressors(discussed with patient and she is agreeable to this). Will see how her HR does but may need Amiodarone (understanding the risk of converting her to NSR and thus provoking more embolic events). 60 minutes spent on critical care time with this patient and family No beds at [facility] or any [facility] hospital. Patient refuses to go to [facility]. (2) Occlusive mesenteric ischemia: Code(s): K55.059 - Acute (reversible) ischemia of intestine, part and extent unspecified Status: Acute Assessment and Plan: As above. Appreciate surgery input (3) Renal infarct: Onset Date: 10/29/22 Code(s): N28.0 - Ischemia and infarction of kidney Status: Acute Assessment and Plan: Patient presented to the ED due to diarrhea, nausea, and vomiting. CT of abdomen pelvis revealed possible renal infarct. She has been compliant with her warfarin but INR subtherapeutic. Concern for embolic event but renal US does not show any concerns for infarct and repeat CT also not showing any concerns for infarct. Consider pyelonephritis but no CVA tenderness. Abx started. Follow up on cultures. (4) Urinary retention: Code(s): R33.9 - Retention of urine, unspecified Status: Acute Assessment and Plan: CT Abd/pelvis on admission showing bladder distention. Renal US showing normal bladder. Clinically, she had bladder distention and nursing staff had difficulty placing Barnard. Ultimately, urology had to be called to place catheter. He found ureteral stricture causing her symptoms. Really appreciate their input. Patient is more comfortable but still with considerable pain. Continue Barnard with plan for trial later in the hospital course. (5) Acute kidney injury: Code(s): N17.9 - A
--- NOTE | 2022-10-31 13:52 | WPDGICN ---
Assessment and Plan Assessment and plan (1) Epigastric abdominal pain: Code(s): R10.13 - Epigastric pain Status: Acute Assessment and Plan: Epigastric pain noted on physical exam appears to correlate with esophagitis and gastritis identified by CT scanning. Plan to treat with pantoprazole. [place] diet is suggested when diet advanced. Consider EGD electively when the status of her renal disorder is more closely clarified. This can be done electively. (2) Esophagitis: Code(s): K20.90 - Esophagitis, unspecified without bleeding Status: Acute Assessment and Plan: CT scan suggested esophagitis and gastritis. Likely contributes to her epigastric pain continue treatment with pantoprazole. (3) Gastritis: Code(s): K29.70 - Gastritis, unspecified, without bleeding Status: Acute (4) Intrahepatic bile duct dilation: Code(s): K83.8 - Other specified diseases of biliary tract Status: Acute Assessment and Plan: Suggestion of intrahepatic bile duct a dilatation by imaging. Patient's LFTs are Unremarkable. AST minimally elevated at 46.. Would follow this conservatively. This is been described on previous imaging studies and appears to be chronic. This does not appear to correlate with her abdominal pain. This is felt to be not likely significant.. (5) Renal infarct: Onset Date: 10/29/22 Code(s): N28.0 - Ischemia and infarction of kidney Status: Acute Assessment and Plan: Imaging studies suggest renal infarct however could be pyelonephritis. Urology service is following. (6) UTI (urinary tract infection): Code(s): N39.0 - Urinary tract infection, site not specified Status: Acute Assessment and Plan: UTI suspected. Urine cultures pending. (7) A-fib: Code(s): I48.91 - Unspecified atrial fibrillation Status: Acute Assessment and Plan: Patient on anticoagulation per primary care service. GI Consult Note Consult date/time: 10/31/22 13:52 Reason for consult: Epigastric pain. HPI: Lesia Aguilera is a 76 year old female Admitted to the hospital several days ago with nausea vomiting and diarrhea. After admission the hospital imaging studies reveal apparent renal infarct, although Urology for service feels is could represent pyelonephritis. Patient is found to have an active urinary tract infection. Patient did require dilatation of a urethral stricture stricture. Patient has a history of atrial fibrillation and is on Coumadin anticoagulation. After admission the hospital her nausea vomiting and diarrhea have resolved. She continues to have epigastric discomfort. CT scanning did suggest possible gastritis and esophagitis by CT scan. Patient denies overt dysphagia. Review of Systems Review of Systems: Review of systems noncontributory. [facility] Past Medical History Medical History (Updated 10/31/22 @ 13:55 by Jeffery Campa MD) A-fib Anxiety Coronary artery disease Coronary calcifications noted on imaging however patient denies any history of known coronary artery disease. She does have p.r.n. nitroglycerin on her home med rec Hearing loss Hearing aids Obesity Surgical History Surgical History (Updated 10/30/22 @ 05:05 by Mya Vasquez DO) H/O colonoscopy (~02/2022) Hemorrhoids and prior polypectomy with her most recent colonoscopy not demonstrating polyps H/O tubal ligation Family History Family History Mother Diabetes mellitus Father Heart disease Sibling Cerebrovascular accident Chronic obstructive pulmonary disease Asthma Prostate carcinoma Son Colon cancer Daughter Allergies Social History Social History (Updated 10/30/22 @ 05:24 by Mya Vasquez DO) Social History: She was 3 times but her last in 2009. She had 6 children. She ran a beauty shop out of
[2022-10-31 14:17] LABS: Partial Thromboplastin Time 103.7 SECONDS (22.3-36.8)
[2022-10-31] MEDS: HEPARIN SOD/D5W 100 UNITS/ML 25,000 UNITS/250 ML BAG 11 UNITS IV CONT (14:55)
[2022-10-31] MEDS: SODIUM CHLORIDE 0.9% IV 1,000 ML 100 ML IV CONT (15:00)
[2022-10-31 15:38] LABS: Alveolar/Arterial O2 Gradient 40.2 mmHg; Base Excess ABG -6.5 mEq/l (+/-2.0); Fractional Inspired Oxygen 21 %; HCO3 ABG 17.2 mEq/l (22.0-26.0); Oxygen Content ABG 16.5 %vol (16.0-22.0); Oxygen Saturation ABG 95.2 % (95.0-100.0); Oxyhemoglobin 93.9 % THb (90.0-100.0); PO2 ABG 74.8 mmHg (80.0-100.0); PO2 FiO2 Ratio Arterial Blood 3.56 %; Total Hemoglobin 12.5 g/dL (12.0-18.0); pH ABG 7.391 (7.350-7.450)
[2022-10-31 15:40] LABS: Device ROOM AIR; Modified Allen's Test Pass; Site Drawn RIGHT RADIAL
[2022-10-31 15:53] LABS: Hematocrit 39.1 % (37.0-47.0); Hemoglobin 12.3 g/dL (12.0-15.0); Mean Corpuscular HGB Conc 31.5 g/dl (32-36); Mean Corpuscular Hemoglobin 31.3 pg (26-34); Mean Corpuscular Volume 99.5 fl (80-100); Mean Platelet Volume 11.5 fl (7.4-10.4); Platelet Count Result 171 k/mm3 (150-375); Red Blood Count 3.93 M/mm3 (4.2-5.4); Red Cell Distribution Width 13.7 % (11.5-14.5); White Blood Count 7.5 K/mm3 (4.5-10.0)
[2022-10-31] MEDS: SODIUM CHLORIDE 0.9% IV 500 ML 999 ML IV CONT (15:56)
[2022-10-31 16:03] LABS: Chloride 111 mmol/L (98-107)
[2022-10-31 16:03] LABS: Lactic Acid Reflex 2.6 mmol/L (0.7-2.0)
[2022-10-31 16:12] LABS: Alanine Aminotransferase 21 U/L (6-35); Albumin Level 3.3 g/dL (3.5-5.1); Alkaline Phosphatase 69 U/L (38-126); Anion Gap 10 mmol/L (8-16); Aspartate Amino Transferase 43 U/L (14-36); Bilirubin,Total 1.2 mg/dL (0.2-1.3); Blood Urea Nitrogen 42 mg/dL (7-17); Carbon Dioxide 15 mmol/L (22-30); Estimated CRCL calculation 19 ml/min; Estimated Glomerular Filt Rate 28; Glucose 101 mg/dL (65-110); Lipase 37 U/L (23-300); Sodium 136 mmol/L (137-145)
[2022-10-31 16:22] LABS: Band Neutrophils Percent 32 % (0-6); Lymphocytes Percent Manual 16 % (18-44); Total Cells Counted 100
[2022-10-31 16:23] LABS: Monocytes Percent Manual 8 % (3-9); Neutrophils Percent Manual 44 % (46-73); Schistocytes None Seen (NORMAL)
[2022-10-31 16:33] LABS: Procalcitonin 12.9 ng/mL
[2022-10-31 16:37] LABS: Platelet Estimate Adequate (Adequate)
--- NOTE | 2022-10-31 16:41 | PM.CNGS ---
Assessment and Plan Assessment and plan (1) Occlusive mesenteric ischemia: Code(s): K55.059 - Acute (reversible) ischemia of intestine, part and extent unspecified Status: Acute Assessment and Plan: long d/w pt and family re: need to transfer to tertiary care facility c vascular capabilities, amendable to transfer after long discussion, will try to facilitate transfer, cont supportive care and anticoagulation, serial exams/labs History of Present Illness Consult details Consult date: 10/31/22 Reason for consult: abdominal pain Requesting physician: Rober Antony MD Narrative: Pt is a 76 y/o F presenting to the hospital c worsening abd pain over last few days. Workup, including CT, suggestive of mesenteric ischemia. 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 Pt reports her abd pain has actually slightly improved today. Pt also noted to have renal infarction. Pt c h/o Afib on anticoagulation, but was subtherapeutic in ED. Pt has been started on Heparin gtt. Review of Systems Constitutional: Constitutional: Reports as per HPI, Reports anorexia, Denies chills, Reports fatigue, Denies fever(s), Denies increased appetite, Reports lethargy, Reports malaise, Reports poor appetite, Reports weakness, Denies weight gain and Denies weight loss Eyes: Eyes: Reports no additional eye complaints ENT: Reports system reviewed and no additional complaints, except as documented Cardiovascular: Cardiovascular: Reports no additional cardiovascular complaints Respiratory: Respiratory: Reports no additional respiratory complaints Gastrointestinal: Gastrointestinal: Reports as per HPI, Reports abdominal pain, Reports bloating, Reports GI cramping, Denies diarrhea, Denies nausea, Denies vomiting and Denies hematemesis Genitourinary: Genitourinary: Reports as per HPI Musculoskeletal: Musculoskeletal: Reports no additional musculoskeletal complaints Integumentary/Breasts: Skin/Breast: Reports system reviewed and no additional complaints, except as docu Neurologic: Reports system reviewed and no additional complaints, except as documented Psychiatric: Psychiatric: Reports no additional psychiatric complaints Endocrine: Endocrine: Reports no additional endocrine complaints Hematologic/Lymphatic: Hematologic/Lymphatic: Reports no additional hematologic/lymphatic complaints Allergic/Immunologic: Allergic/Immunologic: Reports no additional allergic/immunologic complaints PMFSH Past Medical History Medical History A-fib Anxiety Coronary artery disease Coronary calcifications noted on imaging however patient denies any history of known coronary artery disease. She does have p.r.n. nitroglycerin on her home med rec Hearing loss Hearing aids Obesity Surgical History Surgical History H/O colonoscopy (~02/2022) Hemorrhoids and prior polypectomy with her most recent colonoscopy not demonstrating polyps H/O tubal ligation Family History Family History Mother Diabetes mellitus Father Heart disease Sibling Cerebrovascular accident Chronic obstructive pulmonary disease Asthma Prostate carcinoma Son Colon cancer Daughter Allergies Social History Social History Social History: She was 3 times but her last in 2009. She had 6 children. 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 She is a former smoker. She does not drink alcohol, smoke marijuana or use illicit drugs. Code status full code Smoking packs per day: 0.2 Smoking cigarettes per day: 4.0 Years smoked: 2 Smoking pack-years: 0.40 Smoking status: Former smoker Tobacco type: cigarettes Second scott
[2022-10-31 17:07] LABS: Eosinophil Urine None Seen % (None Seen)
[2022-10-31 17:27] LABS: Creatinine Urine 182.4 mg/dL; Total Protein Urine Random 62 mg/dL; Ur Ttl Prot Creatinine Ratio 0.34 mg/mg (0-0.20)
[2022-10-31 17:30] LABS: Potassium Urine Random 60.6 meq/L; Sodium Urine Random 7 meq/L
--- NOTE | 2022-10-31 17:45 | WPDPROCEDUR ---
Procedures Central Line Placement Right Femoral: Central Line Date: 10/31/22 Central Line Time: 17:45 Consent: I have discussed with the patient and/or surrogate, the non-emergent placement of a central venous catheter, including its clinical necessity/indication and associated potential risks and complications. The patient and/or surrogate understand(s) and acknowledge(s) the need to proceed with central venous catheter insertion as an important element of the patient's clinical management. Time Out Performed: Yes Patient Position: supine Patient placed on monitor/pulse ox: Yes Provider Prep: mask, sterile gown, sterile gloves, Max. sterile barrier precautions and hand hygiene with conventional soap/water or alcohol based hand rub Central line prep: 2% Chlorhexidine scrub Local anesthesia used: lidocaine 1% Amount of anesthesia used (ml): 5 Sterile US Technique with sterile gel/sterile probe covers: Yes Central line lumen inserted: triple Ecuadorean: 7 Length (cm): 20 Post Procedure: sutured in place, good blood return, all ports aspirated, flushed, capped, transparent dressing, antimicrobial product and aseptic technique maintained throughout procedure Post procedure x-ray: other (n/a with femoral placement) Patient tolerated procedure: well Complications: none
--- NOTE | 2022-10-31 17:57 | PC.NURSE ---
This patient, Lesia Aguilera, was received from [[id number] ] on 10/31/22 at 1757. Patient/family oriented to unit policies and routines
[2022-10-31] MEDS: DIGOXIN INJ 250 MCG/ML 2 ML AMP (*BKC) 500 MCG IV PUSH (18:38)
[2022-10-31 18:51] LABS: Reflex Lactic Acid Yes or No Add Lactic
[2022-10-31 19:58] LABS: Lactic Acid 2.5 mmol/L (0.7-2.0)
[2022-10-31] MEDS: SODIUM BICARBONATE 8.4% 100 MEQ in WATER, STERILE FOR INJECTION 1,000 ML 50 MEQ IV CONT (20:44)
--- NOTE | 2022-10-31 21:25 | PC.NURSE ---
Addendum entered by Mya Tate RN 10/31/22 21:39: discussed upcoming PTT, Jein states they will draw PTT at [place] on arrival. Original Note: Report called to Jeni at [facility]. Pt condition and labs, meds, and vitals reviewed. Aware of lack of Sensation in legs. Will call when patient is en route.
--- NOTE | 2022-10-31 21:27 | PC.NURSE ---
Jeni called and made aware pt on their way, reviewed recent meds given. Visiting hours obtained for family.
--- NOTE | 2022-11-01 20:13 | PM.TDS ---
Transfer Discharge Sum: Prov Provider Date of admission: 10/31/22 11:45 Primary care physician: Danyel Gaston, MD Admitting clinician: Mya Vasquez DO Consults: 10/30/22 Care Coordination Consult Routine Comment: Eliquis pricing Reason for Consult:: Specialty Medications 10/30/22 16:40 Consult to Physician Routine Comment: SPOKE TO [address] [employer] Consulting Provider: Jeffery Campa cupola melter helper/MD group to consult: GI Reason for consultation: Abdominal pain, N/V/D Has provider been notified: Yes 10/30/22 20:14 Consult to Physician Routine Comment: notified exchange Consulting Provider: Stefano Maher Reason for consultation: bladder distention unable to place a catheter Has provider been notified: Yes 10/31/22 12:51 Consult to Physician Routine Comment: spoke with Ninfa in the office@[id number](ER,US) Consulting Provider: Jena Ruelas cupola melter helper/MD group to consult: general surgery Reason for consultation: abd pain. mesenteric ischemia? Has provider been notified: Yes DS: Admitting Diagnosis Discharge Date 10/31/22 Admitting Diagnosis Abdominal pain DS: Discharge Diagnosis Discharge Diagnosis (1) Enteritis: Code(s): K52.9 - Noninfective gastroenteritis and colitis, unspecified Status: Acute (2) Occlusive mesenteric ischemia: Code(s): K55.059 - Acute (reversible) ischemia of intestine, part and extent unspecified Status: Acute (3) Renal infarct: Onset Date: 10/29/22 Code(s): N28.0 - Ischemia and infarction of kidney Status: Acute (4) Urinary retention: Code(s): R33.9 - Retention of urine, unspecified Status: Acute (5) Acute kidney injury: Code(s): N17.9 - Acute kidney failure, unspecified Status: Acute (6) Abdominal pain: Code(s): R10.9 - Unspecified abdominal pain Status: Acute (7) Intrahepatic bile duct dilation: Code(s): K83.8 - Other specified diseases of biliary tract Status: Acute (8) Atrial fibrillation with rapid ventricular response: Code(s): I48.91 - Unspecified atrial fibrillation Status: Acute (9) Esophagitis: Code(s): K20.90 - Esophagitis, unspecified without bleeding Status: Acute (10) Gastritis: Code(s): K29.70 - Gastritis, unspecified, without bleeding Status: Acute (11) Abnormal white blood cell count: Code(s): D72.9 - Disorder of white blood cells, unspecified Status: Acute (12) Hypokalemia: Code(s): E87.6 - Hypokalemia Status: Acute Transfer Discharge Sum: Med Medications Active and Home Medications: Home Medications warfarin 5 mg tablet 5 mg PO DAILY 12/24/21 [History Confirmed 10/30/22] calcium carb 300 mg-D3 800 unit-mag ox 25 mg-coppersmith apprentice 0.5 mg-katrin-Zn tablet (Caltrate + D3 Plus Minerals) 1 tablet PO DAILY 02/10/22 [History Confirmed 10/30/22] nitroglycerin 0.4 mg sublingual tablet 0.4 mg sublingual DIRECTED PRN Chest Pain 02/10/22 [History Confirmed 10/30/22] buspirone 10 mg tablet 10 mg PO BID PRN Anxiety 07/08/22 [History Confirmed 10/30/22] ferrous sulfate 325 mg (65 mg iron) tablet (iron) 325 mg PO BID #30 tabs 07/10/22 [Rx Confirmed 10/30/22] metoprolol tartrate 50 mg tablet 50 mg PO Q12HR #60 tabs 07/10/22 [Rx Confirmed 10/30/22] furosemide 20 mg tablet 20 mg PO DAILY 10/30/22 [History Confirmed 10/30/22] Transfer Discharge Sum: Hosp Hospital Course Hospital course: Lesia Aguilera is a 76 year old female here for abdominal pain. Please see H&P for details Patient presented to the ED due to diarrhea, nausea, and vomiting.? CT of abdomen pelvis revealed possible renal infarct. She has been compliant with her warfarin but INR subtherapeutic. Concern for embolic event. We considered pyelonephritis. Abx started. Barnard placed for possible retention. Patient continued with severe abdominal pain despite placement Barnard catheter.? CT of the abdomen and pelvis repe
[2022-11-03 15:14] LABS: Chloride Rand Ur <20 mmol/L (32-290); Creatinine Random Urine 172 mg/dL (20-275)
== END 2022-10-31 21:30 | disposition short-term general hospital (02) | DRG 698 ==
LOC: ANHED 20:03 → ANH3MEDSUR 10-30 00:42 → ANH3MED 10-30 10:53 → ANHIMU 10-30 18:26 → ANHICU 10-31 17:56 → ANHIMU 11-01 16:25
PROVIDERS: Internal Medicine Critical Care Medicine; Physician Assistant; Admitting Provider Internal Medicine; Emergency Provider Emergency Medicine; PCP Internal Medicine; Visit Provider Internal Medicine
DX: N28.0 Ischemia and infarction of kidney (principal); K55.019 Acute (reversible) ischemia of small intestine, extent unspecified; I48.20 Chronic atrial fibrillation, unspecified; E87.21 Acute metabolic acidosis; N39.0 Urinary tract infection, site not specified; M17.9 Osteoarthritis of knee, unspecified; K20.90 Esophagitis, unspecified without bleeding; K52.9 Noninfective gastroenteritis and colitis, unspecified; K29.70 Gastritis, unspecified, without bleeding; Z20.822 Contact with and (suspected) exposure to COVID-19; K83.8 Other specified diseases of biliary tract; R33.9 Retention of urine, unspecified; F41.9 Anxiety disorder, unspecified; E87.6 Hypokalemia; I10 Essential (primary) hypertension; I25.10 Atherosclerotic heart disease of native coronary artery without angina pectoris; R79.1 Abnormal coagulation profile; Z66 Do not resuscitate; Z79.01 Long term (current) use of anticoagulants; Z87.891 Personal history of nicotine dependence
CPT/HCPCS: 36415; 36600; 74176; 74177; 76705; 76775; 80053; 81001; 82436; 82570; 82607; 82728; 82746; 82805; 83540; 83550; 83605; 83615; 83690; 83735; 84133; 84145; 84156; 84300; 84443; 84466; 85025; 85610; 85730; 85999; 87040; 87077; 87086; 87186; 87636; 93005; 93306; 93970; 96361; 96365; 96366; 96367; 96375; 96376; 99285; A9270; C1726; C1751; C1769; C9113; G0378; J0131; J1160; J1170; J1644; J2270; J2405; J2543; J3480; J7030; J7040; Q9967